=== PATIENT | female | born 1940 | race Caucasian/White ===

== ENCOUNTER 2016-09-02 14:03 | Outpatient (CLI) | payer OTHER ==
[~2016-09-02 14:03] MED LIST: ALPRAZOLAM0.5 MG PO; ATORVASTATIN CA20 MG PO; CEPHALEXIN250 MG PO; CYCLOBENZAPRINE10 MG PO; FOLIC ACID1 MG PO; FOSAMAX70 MG PO; FUROSEMIDE40 MG PO; HUMALOG KWI100 MG/ML SC; IRON325 MG PO; LACTULOSE PO; LANTUS SOL100 UNITS/ SC; LEVOTHYROXINE100 MCG PO; MAG-OXIDE400 MG PO; PRILOSEC20 MG PO; PROMACTA12.5 MG PO; SPIRONOLACTONE25 MG PO; SPIRONOLACTONE50 MG PO; VICODIN EQUIVAL1 TAB PO
--- NOTE | 2016-09-02 14:50 | DIAGNOSTIC IMAGING REPORT ---
PROCEDURE: XR LUMBAR SPINE 2 OR 3 VIEWS INDICATION: OSTEOARTHRITIS TECHNIQUE: Three views. COMPARISON: Spine films 02/01/09 FINDINGS: Disc spacing preserved with mild vertebral end plate spurring at multiple levels. No spondylolisthesis. No evidence of an acute process or fracture. IMPRESSION: 1. Negative lumbar spine. No change from 2008 with multilevel vertebral endplate spurring.
--- NOTE | 2016-09-02 15:03 | DIAGNOSTIC IMAGING REPORT ---
PROCEDURE: XR THORACIC SPINE 2 VIEWS INDICATION: OSTEOARTHRITIS TECHNIQUE: Three views. COMPARISON: Spine films 02/01/2009 FINDINGS: No evidence of an acute process or fracture. Disc spacing preserved with mild vertebral end plate spurring at multiple levels. IMPRESSION: 1. Negative thoracic spine. No change from 2009
== END 2016-09-02 23:00 ==
LOC: XR SRH 14:03
DX: M54.6 Pain in thoracic spine (principal); M54.5 Low back pain

== ENCOUNTER 2016-11-03 10:05 | Emergency (ER) | payer OTHER ==
--- NOTE | 2016-11-03 10:56 | ED CLINICAL REPORT ---
Clinical Report - Physicians/Mid Levels [facility] [address] [place] [address] 11/03/2016 10:05 Patient: ROXANA HERNANDEZ Time Seen: 1030. Arrived- By private vehicle. Historian- patient. HISTORY OF PRESENT ILLNESS Chief Complaint: SKIN RASH. This started past few days and is still present and worsening. It was gradual in onset and has been constant but is not gone now. It is described as painful. It has been located on the right wrist and hand. A cause has been identified (had IV placed at [facility] a day or two before it happened.). Similar symptoms previously: None. Recent medical care: The patient was seen recently in a clinic. ( gets ascites drained and fluids every 2 weeks.). REVIEW OF SYSTEMS No chest pain or joint pain. All systems otherwise negative, except as recorded above. PAST HISTORY See nurses notes. Tetanus immunization status is up-to-date. SOCIAL HISTORY No drug use. No recent travel. Is a local resident. ADDITIONAL NOTES The nursing notes have been reviewed. PHYSICAL EXAM Vital Signs: 11/03/2016 10:15 BP: 130/53. HR: 55. RR: 18. O2 saturation: 98%. Temp: 97.7 F. Appearance: Alert. Oriented X3. No acute distress. Eyes: Pupils equal, round and reactive to light. Conjunctivae and eyelids normal. ENT: Ears normal. Nose normal. Pharynx normal. Neck: Neck supple. CVS: Normal heart rate and rhythm. Heart sounds normal. Respiratory: No respiratory distress. Breath sounds normal. Chest nontender. Abdomen: Nontender. (distended with ascites.). Skin: Small area of cellulitis to right wrist and right hand. No abscess. (no crepitus. Neurovasc intact.). PROGRESS AND PROCEDURES Course of Care: he patient is a pleasant 76-year-old female with past medical history significant forcirrhosis and ascites presented for evaluation of hand pain. On examination there is erythema noted. No abscesspalpable on examination. Do not feelpatienthasarea requiring incision and drainage. Offered to draw labs on the patient based on her history of cirrhosis however patient declines at this time patient states that she has labs drawnevery 2 weeks. Patient reports that she has an appointment scheduled with her doctor in the next 2 days and will follow up withthem. Patient is not having no systemic symptoms. No fever nausea vomiting. Patient reports that she will follow up with her doctor if she is not better and will return to the emergency department if she has any worsening. Had long discussion patient in regards to her workup here in the emergency department including diagnosis, home care, follow-up, and return precautions. All questions have been answered. The patient and daughter expressed understanding of these instructions and was agreeable to them. Disposition: Discharged. Condition: good. CLINICAL IMPRESSION 11/03/2016 10:15 BP: 130/53. HR: 55. RR: 18. O2 saturation: 98%. Temp: 97.7 F. Blood pressure normal. Oxygen saturation normal. Cellulitis of the right wrist and right hand (acute). INSTRUCTIONS Warnings: GENERAL WARNINGS: Return or contact your physician immediately if your condition worsens or changes unexpectedly, if not improving as expected, or if other problems arise. Specifically return if pain, vomiting, bleeding, breathing difficulty or fever. numbness, tingling, or weakness. Your Current Medications: CONTINUE TAKING THE FOLLOWING MEDICATIONS: Atorvastatin Calcium Oral : 20 mg daily. Cyclobenzaprine HCl Oral : 10 mg daily. Folic Acid Oral. Fosamax Oral. Furosemide Oral : 20 mg daily. Hydrocodone-Acetaminophen Oral : 5 mg 2x a day. Iron dialy*. Levothyroxine Sodium Oral : 150 mcg daily. PriLOSEC Oral : 20 mg daily. Promacta Oral : Tablet 12.5 mg, 3x a week. Spironolactone Oral : 50 mg daily. Prescription Medications: Bactrim DS 800 mg / 160 mg: take 1 tablet orally every 12 hours for 10 days. No refill. Substitution is permissible. (disp 20 tabs) Keflex 500 mg: take 1 capsule orally every 8 hours for 10 days. No refill. Substitution is permissible. (disp 30 caps) Follow-up: Return to the emergency department as needed. Follow up with your doctor as needed. Reason for referral: recheck today's concerns. Summary of care provided to patient and family via paper. Screening today revealed the patient's blood pressure to be in the normal range. The patient should follow up with a primary care provider for blood pressure management. Understanding of the discharge instructions verbalized by patient. Discharge instructions reviewed (daughter). (Electronically signed by Dionicio Camilo Dr. 11/06/2016 20:51)
--- NOTE | 2016-11-03 10:56 | ED NURSING NOTES ---
Clinical Report - Nurses [facility] [address] [place] [address] 11/03/2016 10:05 Patient: ROXANA HERNANDEZ TRIAGE Triage time 10:15 Nov 03 2016. Acuity: LEVEL 3. Chief Complaint: INJURY TO RIGHT HAND. --10:20 Alfonso Wick R.N. 10:15 11/03/16. BP: 130/53. HR: 55. RR: 18. O2 saturation: 98%. Temp: 97.7 F. Pain level now 03/16. --10:20 Alfonso Wick R.N. K[place]ITLIN COMA SCORE: [place] Coma Scale: 15- eyes open spontaneously (4); best verbal response- oriented x 4 (5); best motor response- obeys commands (6). --10:21 Alfonso Wick R.N. Weight: 60.3 kg stated. Height/Length: 63 inches Per Patient. BMI: 23.6. --10:18 Alfonso Wick R.N. Medications Atorvastatin Calcium Oral 20 mg, daily. --10:20 Alfonso Wick R.N. Cyclobenzaprine HCl Oral 10 mg, daily. Folic Acid Oral. Fosamax Oral. Furosemide Oral 20 mg, daily. Hydrocodone-Acetaminophen Oral 5 mg, 2x a day. Iron dialy. Levothyroxine Sodium Oral 150 mcg, daily. PriLOSEC Oral 20 mg, daily. Promacta Oral (Tablet 12.5 mg), 3x a week. Spironolactone Oral 50 mg, daily. --10:20 Alfonso Wick R.N. Allergies NKDA. --10:20 Alfonso Wick R.N. History Arrived by private vehicle. Historian: patient. Accompanied by family. Primary physician (Becky). This occurred (since Monday). Occurred (hospital). ( Had an IV on that arm at [facility] when patient states she had her fluid removed from her belly.). No neck pain or weakness. Treatment LEAD SHIPPER: Ice and (heat). PAST MEDICAL HX: Tetanus status: up-to-date. Immunizations: up-to-date. The patient is post-menopausal. SOCIAL HX: Smoker- current status unknown. No alcohol use or drug use. SELF HARM ASSESSMENT: A self harm assessment was performed. The patient answered "no" to the question "Have you recently felt down, depressed, or hopeless?" and "Do you have thoughts of harming or killing yourself?". FALL RISK ASSESSMENT: Fall risk assessment completed. No fall risk identified. NUTRITIONAL RISK ASSESSMENT: The nutritional risk assessment revealed no deficiencies. FUNCTIONAL ASSESSMENT: Functional assessment: no impairments noted. LEARNING NEEDS ASSESSMENT: The learning needs assessment revealed no barriers. ABUSE ASSESSMENT: Abuse assessment: (no) The patient was asked "Do you feel safe in your home?". SKIN INTEGRITY ASSESSMENT: Skin integrity risk assessment completed. No skin integrity risk identified. --10:20 Alfonso Wick R.N. PROBLEMS: Leukopenia. Benign Positional Vertigo. Dizziness. Vomiting. Vertigo. Weakness. Ascites. Thrombocytopenia. Laceration. Skin Avulsion. Renal Failure. Hypoglycemia. Fall. Rectal Bleed. Hemorrhoids. Abdominal Pain. Cystitis. Contusion. URI. Bronchitis. Costochondritis. Chest Wall Pain. Hyperlipidemia. Congestive Heart Failure. Arrhythmia. Coronary Artery Disease. Anemia. Abnormal Test. Arthritis. Back Pain. Hypothyroidism. Myocardial Infarction. Diabetes Mellitus. Hypertension. --10:21 Alfonso Wick R.N. ADDITIONAL SURGERIES: Abdominal Hernia Repair. Cholecystectomy. Coronary Artery Bypass Graft. . Hernia Repair. Hysterectomy. Pacemaker. Tonsillectomy. --10:21 Alfonso Wick R.N. Interventions ID band on patient. --10:20 Alfonso Wick R.N. PHYSICAL ASSESSMENT Ambulatory to room. GENERAL / NEURO / PSYCH: Oriented X 4. Alert. Appears in no acute distress. Appears in pain. EXTREMITIES: Extremity pulses are within normal limits. Extremities exhibit normal ROM. Right forearm: tenderness and erythema. No laceration, abrasion or deformity. Right wrist: tenderness and erythema. Limited ROM secondary to pain. No deformity. SKIN: Skin intact. Skin is warm and dry. No bleeding. --10:24 Hernandez, Gracia, R.N. NURSING PROGRESS NOTES The initial plan of care for this patient has been created This plan of care was discussed with the patient. Warming measures: blanket applied. Reassurance given. Two patient identifiers checked. Call light placed in reach. Side rails up x 1. Bed placed in lowest position. Brakes of bed on. --10:24 Gracia Hernandez R.N. 10:47 11/03/2016 Keflex (Cephalexin) PO Tablets 500 mg given. Allergies verified and confirmed 5 rights. --10:47 Gracia Hernandez R.N. 10:47 11/03/2016 Bactrim DS (Sulfamethoxazole-TMP DS) PO 1 tab given. Allergies verified and confirmed 5 rights. --10:47 Gracia Hernandez R.N. 11:04 11/03/2016 Bactrim DS PO Response: no adverse reaction. --11:14 Gracia Hernandez R.N. 11:10 11/03/2016 Keflex PO Response: no adverse reaction. --11:15 Gracia Hernandez R.N. DISPOSITION / DISCHARGE Departure time: 1115 AM. Condition at departure: unchanged and stable. The goals identified in the patient's plan of care were met. No learning barriers present. Discharge instructions provided and reviewed with the patient and family. Reviewed warnings (s/s of symptoms and swealling getting worse). Reviewed medication(s) side effects, precautions, dosing and course information. Prescription(s) given to the patient. Activity restrictions (rest) reviewed. Patient verbalized understanding. Written instructions provided in [place]. No treatment instructions or referrals given to the patient. The patient was discharged by the physician. She was discharged home and accompanied by family. She left the Emergency Department ambulatory and via private vehicle. Family member driving. FALL RISK ASSESSMENT: Fall risk assessment completed. No fall risk identified. --11:17 Gracia Hernandez R.N. 11:00 11/03/16. BP: 119/50 (regular adult cuff) taken on the left arm, via an automated monitor, while sitting. HR: 81. RR: 18. O2 saturation: 100% on room air. Temp: 98.2 F (oral). Pain level now: 12/14. --11:17 Gracia Hernandez R.N. Locked/Released at 11/03/2016 11:17 by Gracia Hernandez R.N.
--- NOTE | 2016-11-03 10:57 | ED ORDER SUMMARY ---
..... Patient: ROXANA HERNANDEZ OrderSheet [facility] VisitID: [id number] [address] [place] [address] 76y, F Registration Date/Time: 11/03/2016 ORDER SHEET Weight: 60.3 kg (stated) Allergies: NKDA GENERAL ORDERS: MEDICATION ORDERS: Keflex PO 500 mg (NOW) (10:40 11/03/2016 Hunter Flores) (10:47 EHgriselda R.N.) Bactrim DS PO (Tablet 800-160 mg) 1 tab (NOW) (10:40 11/03/2016 Hunter Flores) (10:47 Jamila R.N.) IV FLUIDS: ORDER SHEET NOTES: [Electronically signed by Gracia Hernandez R.N. (11:17 11/03/2016)] [Electronically signed by Dionicio Camilo Dr. (20:51 11/06/2016)] [Electronically locked/signed by Gracia Hernandez R.N. (11:17 11/03/2016)]
--- NOTE | 2016-11-03 10:57 | ED ORDER SUMMARY ---
..... Patient: ROXANA HERNANDEZ OrderSheet [facility] VisitID: [id number] [address] [place] [address] 76y, F Registration Date/Time: 11/03/2016 ORDER SHEET Weight: 60.3 kg (stated) Allergies: NKDA GENERAL ORDERS: MEDICATION ORDERS: Keflex PO 500 mg (NOW) (10:40 11/03/2016 Hunter Flores) (10:47 EHgriselda R.N.) Bactrim DS PO (Tablet 800-160 mg) 1 tab (NOW) (10:40 11/03/2016 Hunter Flores) (10:47 Jamila R.N.) IV FLUIDS: ORDER SHEET NOTES: [Electronically signed by Gracia Hernandez R.N. (11:17 11/03/2016)] [Electronically signed by Dionicio Camilo Dr. (20:51 11/06/2016)] [Electronically locked/signed by Gracia Hernandez R.N. (11:17 11/03/2016)]
--- NOTE | 2016-11-06 20:51 | ED MED RECONCILIATION SUMMARY ---
Patient: ROXANA HERNANDEZ Medication Reconciliation Report [facility] VisitID: [id number] [place] [address] 76y, F Registration Date/Time: 11/03/2016 Weight: 60.3 kg Height/Length: 63 in. BMI: 23.6 ALLERGIES: NKDA The patient's Home Medications are listed below: CONTINUE TAKING THE FOLLOWING MEDICATIONS: Atorvastatin Calcium Oral 20 mg, daily Cyclobenzaprine HCl Oral 10 mg, daily Folic Acid Oral Fosamax Oral Furosemide Oral 20 mg, daily Hydrocodone-Acetaminophen Oral 5 mg, 2x a day Iron dialy Levothyroxine Sodium Oral 150 mcg, daily PriLOSEC Oral 20 mg, daily Promacta Oral (12.5 mg), 3x a week Spironolactone Oral 50 mg, daily The source(s) of the original Home Medication information: Not obtained. The following Medications were given to the patient in the Emergency Department: Keflex [PO] PO 500 mg, administered: 11/03/2016 10:47:00 AM Bactrim DS [PO] PO 1 tab, administered: 11/03/2016 10:47:00 AM The following Medications were prescribed to the patient: Bactrim DS 800 mg / 160 mg: take 1 tablet orally every 12 hours for 10 days. No refill. Substitution is permissible.(disp 20 tabs) -- Dionicio Camilo Dr. Keflex 500 mg: take 1 capsule orally every 8 hours for 10 days. No refill. Substitution is permissible.(disp 30 caps) -- Dionicio Camilo Dr.
--- NOTE | 2016-11-06 20:51 | ED MAR SUMMARY ---
..... Medication Administration Record [facility] [address] [place] [address] Patient: ROXANA HERNANDEZ Visit ID: [id number] 76y, F Weight: 60.3 kg Height/Length: 63 in BMI: 23.6 ALLERGIES: NKDA Given 10:47 11/03/2016 Gracia Hernandez, RLuisNLuis Medication Administered: KEFLEX [PO] (CEPHALEXIN), Dose: 500 mg Tablets PO. Medication Ordered: Keflex PO 500 mg (NOW). Given 10:47 11/03/2016 Gracia Hernandez, R.N. Medication Administered: BACTRIM DS [PO] (SULFAMETHOXAZOLE-TMP DS), Dose: 1 tab PO. Medication Ordered: Bactrim DS PO (Tablet 800-160 mg) 1 tab (NOW).
--- NOTE | 2016-11-06 20:51 | ED DISCHARGE INSTRUCTIONS ---
Patient: ROXANA HERNANDEZ General Instructions [facility] VisitID: [id number] [place] [address] 76y, F Registration Date/Time: 11/03/2016 11/03/2016 10:15 BP: 130/53. HR: 55. RR: 18. O2 saturation: 98%. Temp: 97.7 F. Blood pressure normal. Oxygen saturation normal. Cellulitis of the right wrist and right hand (acute). INSTRUCTIONS Warnings: GENERAL WARNINGS: Return or contact your physician immediately if your condition worsens or changes unexpectedly, if not improving as expected, or if other problems arise. Specifically return if pain, vomiting, bleeding, breathing difficulty or fever. numbness, tingling, or weakness. Your Current Medications: CONTINUE TAKING THE FOLLOWING MEDICATIONS: Atorvastatin Calcium Oral : 20 mg daily. Cyclobenzaprine HCl Oral : 10 mg daily. Folic Acid Oral. Fosamax Oral. Furosemide Oral : 20 mg daily. Hydrocodone-Acetaminophen Oral : 5 mg 2x a day. Iron dialy*. Levothyroxine Sodium Oral : 150 mcg daily. PriLOSEC Oral : 20 mg daily. Promacta Oral : Tablet 12.5 mg, 3x a week. Spironolactone Oral : 50 mg daily. Prescription Medications: Bactrim DS 800 mg / 160 mg: take 1 tablet orally every 12 hours for 10 days. No refill. Substitution is permissible. (disp 20 tabs) Keflex 500 mg: take 1 capsule orally every 8 hours for 10 days. No refill. Substitution is permissible. (disp 30 caps) Follow-up: Return to the emergency department as needed. Follow up with your doctor as needed. Reason for referral: recheck today's concerns. Summary of care provided to patient and family via paper. Screening today revealed the patient's blood pressure to be in the normal range. The patient should follow up with a primary care provider for blood pressure management. Understanding of the discharge instructions verbalized by patient. Discharge instructions reviewed (daughter). ADDITIONAL INFORMATION Cellulitis You have an infection of the skin known as cellulitis. This usually starts with a scrape, cut, insect bite, blister or other opening in the skin which becomes infected. This is a serious condition. It must be watched closely to be sure the infection is not spreading. With antibiotic treatment, the size of the red area will gradually shrink in size until the skin returns to normal. This will take 7-10 days. The red area should never increase in size once the antibiotic medicine has been started. Occasionally, an infection will be resistant to one antibiotic and another one will have to be used. Home Care: 1) Limit the use of the affected part, since excess movement can cause the infection to spread. 2) If the infection is on your leg, walk as little as possible during the first few days of the treatment. Keep your leg elevated while sitting. This will reduce swelling. 3) Take all of the antibiotic medicine exactly as directed until it is gone. Be careful not to miss any doses, especially during the first seven days. Follow Up with your doctor or this facility as directed. Check the infected area daily for the warning signs listed below. Get Prompt Medical Attention if any of the following occur: -- Spreading area of redness -- Increasing swelling or pain -- Appearance of pus or drainage -- Fever over 100.4 F (38.0 C) oral, or over 101.4 F (38.6 C) rectal, after two days on antibiotics Sulfamethoxazole, Trimethoprim Oral tablet What is this medicine? SULFAMETHOXAZOLE; TRIMETHOPRIM or SMX-TMP (suhl fuh meth OK alberto zohl; trye METH oh prim) is a combination of a sulfonamide antibiotic and a second antibiotic, trimethoprim. It is used to treat or prevent certain kinds of bacterial infections. It will not work for colds, flu, or other viral infections. How should I use this medicine? Take this medicine by mouth with a full glass of water. Follow the directions on the prescription label. Take your medicine at regular intervals. Do not take it more often than directed. Do not skip doses or stop your medicine early. Talk to your geographic information system analyst regarding the use of this medicine in children. Special care may be needed. This medicine has been used in children as young as 2 months of age. What side effects may I notice from receiving this medicine? Side effects that you should report to your doctor or health school childcare attendant as soon as possible: allergic reactions like skin rash or hives, swelling of the face, lips, or tongue breathing problems fever or chills, sore throat irregular heartbeat, chest pain joint or muscle pain pain or difficulty passing urine red pinpoint spots on skin redness, blistering, peeling or loosening of the skin, including inside the mouth unusual bleeding or bruising unusually weak or tired yellowing of the eyes or skin Side effects that usually do not require medical attention (report to your doctor or health school childcare attendant if they continue or are bothersome): diarrhea dizziness headache loss of appetite nausea, vomiting nervousness What may interact with this medicine? Do not take this medicine with any of the following medications: aminobenzoate potassium dofetilide metronidazole This medicine may also interact with the following medications: BARRON inhibitors like benazepril, enalapril, lisinopril, and ramipril cyclosporine digoxin diuretics indomethacin medicines for diabetes methenamine methotrexate phenytoin potassium supplements pyrimethamine sulfinpyrazone tricyclic antidepressants warfarin What if I miss a dose? If you miss a dose, take it as soon as you can. If it is almost time for your next dose, take only that dose. Do not take double or extra doses. Where should I keep my medicine? Keep out of the reach of children. Store at room temperature between 20 to 25 degrees C (68 to 77 degrees F). Protect from light. Throw away any unused medicine after the expiration date. What should I tell my health care provider before I take this medicine? They need to know if you have any of these conditions: anemia asthma being treated with anticonvulsants if you frequently drink alcohol containing drinks kidney disease liver disease low level of folic acid or [id number] dehydrogenase poor nutrition or malabsorption porphyria severe allergies thyroid disorder an unusual or allergic reaction to sulfamethoxazole, trimethoprim, sulfa drugs, other medicines, foods, dyes, or preservatives or trying to get breast-feeding What should I watch for while using this medicine? Tell your doctor or health school childcare attendant if your symptoms do not improve. Drink several glasses of water a day to reduce the risk of kidney problems. Do not treat diarrhea with over the counter products. Contact your doctor if you have diarrhea that lasts more than 2 days or if it is severe and watery. This medicine can make you more sensitive to the sun. Keep out of the sun. If you cannot avoid being in the sun, wear protective clothing and use a sunscreen. Do not use sun lamps or tanning beds/booths. Cephalexin Monohydrate Oral tablet What is this medicine? CEPHALEXIN (sef a DORY in) is a cephalosporin antibiotic. It is used to treat certain kinds of bacterial infections It will not work for colds, flu, or other viral infections. How should I use this medicine? Take this medicine by mouth with a full glass of water. Follow the directions on the prescription label. This medicine can be taken with or without food. Take your medicine at regular intervals. Do not take your medicine more often than directed. Take all of your medicine as directed even if you think you are better. Do not skip doses or stop your medicine early. Talk to your geographic information system analyst regarding the use of this medicine in children. While this drug may be prescribed for selected conditions, precautions do apply. What side effects may I notice from receiving this medicine? Side effects that you should report to your doctor or health school childcare attendant as soon as possible: allergic reactions like skin rash, itching or hives, swelling of the face, lips, or tongue breathing problems pain or trouble passing urine redness, blistering, peeling or loosening of the skin, including inside the mouth severe or watery diarrhea unusually weak or tired yellowing of the eyes, skin Side effects that usually do not require medical attention (report to your doctor or health school childcare attendant if they continue or are bothersome): gas or heartburn genital or anal irritation headache joint or muscle pain nausea, vomiting What may interact with this medicine? probenecid some other antibiotics What if I miss a dose? If you miss a dose, take it as soon as you can. If it is almost time for your next dose, take only that dose. Do not take double or extra doses. There should be at least 4 to 6 hours between doses. Where should I keep my medicine? Keep out of the reach of children. Store at room temperature between 59 and 86 degrees F (15 and 30 degrees C). Throw away any unused medicine after the expiration date. What should I tell my health care provider before I take this medicine? They need to know if you have any of these conditions: kidney disease stomach or intestine problems, especially colitis an unusual or allergic reaction to cephalexin, other cephalosporins, penicillins, other antibiotics, medicines, foods, dyes or preservatives or trying to get breast-feeding What should I watch for while using this medicine? Tell your doctor or health school childcare attendant if your symptoms do not begin to improve in a few days. Do not treat diarrhea with over the counter products. Contact your doctor if you have diarrhea that lasts more than 2 days or if it is severe and watery. If you have diabetes, you may get a false-positive result for sugar in your urine. Check with your doctor or health school childcare attendant. You have been given the following additional information: Cellulitis Sulfamethoxazole, Trimethoprim Oral tablet Cephalexin Monohydrate Oral tablet (Electronically signed by Dionicio Camilo Dr. 11/06/2016 20:51)
--- NOTE | 2016-11-06 20:51 | ED DISCHARGE INSTRUCTIONS ---
Patient: ROXANA HERNANDEZ General Instructions [facility] VisitID: [id number] [place] [address] 76y, F Registration Date/Time: 11/03/2016 11/03/2016 10:15 BP: 130/53. HR: 55. RR: 18. O2 saturation: 98%. Temp: 97.7 F. Blood pressure normal. Oxygen saturation normal. Cellulitis of the right wrist and right hand (acute). INSTRUCTIONS Warnings: GENERAL WARNINGS: Return or contact your physician immediately if your condition worsens or changes unexpectedly, if not improving as expected, or if other problems arise. Specifically return if pain, vomiting, bleeding, breathing difficulty or fever. numbness, tingling, or weakness. Your Current Medications: CONTINUE TAKING THE FOLLOWING MEDICATIONS: Atorvastatin Calcium Oral : 20 mg daily. Cyclobenzaprine HCl Oral : 10 mg daily. Folic Acid Oral. Fosamax Oral. Furosemide Oral : 20 mg daily. Hydrocodone-Acetaminophen Oral : 5 mg 2x a day. Iron dialy*. Levothyroxine Sodium Oral : 150 mcg daily. PriLOSEC Oral : 20 mg daily. Promacta Oral : Tablet 12.5 mg, 3x a week. Spironolactone Oral : 50 mg daily. Prescription Medications: Bactrim DS 800 mg / 160 mg: take 1 tablet orally every 12 hours for 10 days. No refill. Substitution is permissible. (disp 20 tabs) Keflex 500 mg: take 1 capsule orally every 8 hours for 10 days. No refill. Substitution is permissible. (disp 30 caps) Follow-up: Return to the emergency department as needed. Follow up with your doctor as needed. Reason for referral: recheck today's concerns. Summary of care provided to patient and family via paper. Screening today revealed the patient's blood pressure to be in the normal range. The patient should follow up with a primary care provider for blood pressure management. Understanding of the discharge instructions verbalized by patient. Discharge instructions reviewed (daughter). ADDITIONAL INFORMATION Cellulitis You have an infection of the skin known as cellulitis. This usually starts with a scrape, cut, insect bite, blister or other opening in the skin which becomes infected. This is a serious condition. It must be watched closely to be sure the infection is not spreading. With antibiotic treatment, the size of the red area will gradually shrink in size until the skin returns to normal. This will take 7-10 days. The red area should never increase in size once the antibiotic medicine has been started. Occasionally, an infection will be resistant to one antibiotic and another one will have to be used. Home Care: 1) Limit the use of the affected part, since excess movement can cause the infection to spread. 2) If the infection is on your leg, walk as little as possible during the first few days of the treatment. Keep your leg elevated while sitting. This will reduce swelling. 3) Take all of the antibiotic medicine exactly as directed until it is gone. Be careful not to miss any doses, especially during the first seven days. Follow Up with your doctor or this facility as directed. Check the infected area daily for the warning signs listed below. Get Prompt Medical Attention if any of the following occur: -- Spreading area of redness -- Increasing swelling or pain -- Appearance of pus or drainage -- Fever over 100.4 F (38.0 C) oral, or over 101.4 F (38.6 C) rectal, after two days on antibiotics Sulfamethoxazole, Trimethoprim Oral tablet What is this medicine? SULFAMETHOXAZOLE; TRIMETHOPRIM or SMX-TMP (suhl fuh meth OK alberto zohl; trye METH oh prim) is a combination of a sulfonamide antibiotic and a second antibiotic, trimethoprim. It is used to treat or prevent certain kinds of bacterial infections. It will not work for colds, flu, or other viral infections. How should I use this medicine? Take this medicine by mouth with a full glass of water. Follow the directions on the prescription label. Take your medicine at regular intervals. Do not take it more often than directed. Do not skip doses or stop your medicine early. Talk to your plumbing foreman regarding the use of this medicine in children. Special care may be needed. This medicine has been used in children as young as 2 months of age. What side effects may I notice from receiving this medicine? Side effects that you should report to your doctor or health healthcare customer service as soon as possible: allergic reactions like skin rash or hives, swelling of the face, lips, or tongue breathing problems fever or chills, sore throat irregular heartbeat, chest pain joint or muscle pain pain or difficulty passing urine red pinpoint spots on skin redness, blistering, peeling or loosening of the skin, including inside the mouth unusual bleeding or bruising unusually weak or tired yellowing of the eyes or skin Side effects that usually do not require medical attention (report to your doctor or health healthcare customer service if they continue or are bothersome): diarrhea dizziness headache loss of appetite nausea, vomiting nervousness What may interact with this medicine? Do not take this medicine with any of the following medications: aminobenzoate potassium dofetilide metronidazole This medicine may also interact with the following medications: BARRON inhibitors like benazepril, enalapril, lisinopril, and ramipril cyclosporine digoxin diuretics indomethacin medicines for diabetes methenamine methotrexate phenytoin potassium supplements pyrimethamine sulfinpyrazone tricyclic antidepressants warfarin What if I miss a dose? If you miss a dose, take it as soon as you can. If it is almost time for your next dose, take only that dose. Do not take double or extra doses. Where should I keep my medicine? Keep out of the reach of children. Store at room temperature between 20 to 25 degrees C (68 to 77 degrees F). Protect from light. Throw away any unused medicine after the expiration date. What should I tell my health care provider before I take this medicine? They need to know if you have any of these conditions: anemia asthma being treated with anticonvulsants if you frequently drink alcohol containing drinks kidney disease liver disease low level of folic acid or [id number] dehydrogenase poor nutrition or malabsorption porphyria severe allergies thyroid disorder an unusual or allergic reaction to sulfamethoxazole, trimethoprim, sulfa drugs, other medicines, foods, dyes, or preservatives or trying to get breast-feeding What should I watch for while using this medicine? Tell your doctor or health healthcare customer service if your symptoms do not improve. Drink several glasses of water a day to reduce the risk of kidney problems. Do not treat diarrhea with over the counter products. Contact your doctor if you have diarrhea that lasts more than 2 days or if it is severe and watery. This medicine can make you more sensitive to the sun. Keep out of the sun. If you cannot avoid being in the sun, wear protective clothing and use a sunscreen. Do not use sun lamps or tanning beds/booths. Cephalexin Monohydrate Oral tablet What is this medicine? CEPHALEXIN (sef a DORY in) is a cephalosporin antibiotic. It is used to treat certain kinds of bacterial infections It will not work for colds, flu, or other viral infections. How should I use this medicine? Take this medicine by mouth with a full glass of water. Follow the directions on the prescription label. This medicine can be taken with or without food. Take your medicine at regular intervals. Do not take your medicine more often than directed. Take all of your medicine as directed even if you think you are better. Do not skip doses or stop your medicine early. Talk to your plumbing foreman regarding the use of this medicine in children. While this drug may be prescribed for selected conditions, precautions do apply. What side effects may I notice from receiving this medicine? Side effects that you should report to your doctor or health healthcare customer service as soon as possible: allergic reactions like skin rash, itching or hives, swelling of the face, lips, or tongue breathing problems pain or trouble passing urine redness, blistering, peeling or loosening of the skin, including inside the mouth severe or watery diarrhea unusually weak or tired yellowing of the eyes, skin Side effects that usually do not require medical attention (report to your doctor or health healthcare customer service if they continue or are bothersome): gas or heartburn genital or anal irritation headache joint or muscle pain nausea, vomiting What may interact with this medicine? probenecid some other antibiotics What if I miss a dose? If you miss a dose, take it as soon as you can. If it is almost time for your next dose, take only that dose. Do not take double or extra doses. There should be at least 4 to 6 hours between doses. Where should I keep my medicine? Keep out of the reach of children. Store at room temperature between 59 and 86 degrees F (15 and 30 degrees C). Throw away any unused medicine after the expiration date. What should I tell my health care provider before I take this medicine? They need to know if you have any of these conditions: kidney disease stomach or intestine problems, especially colitis an unusual or allergic reaction to cephalexin, other cephalosporins, penicillins, other antibiotics, medicines, foods, dyes or preservatives or trying to get breast-feeding What should I watch for while using this medicine? Tell your doctor or health healthcare customer service if your symptoms do not begin to improve in a few days. Do not treat diarrhea with over the counter products. Contact your doctor if you have diarrhea that lasts more than 2 days or if it is severe and watery. If you have diabetes, you may get a false-positive result for sugar in your urine. Check with your doctor or health healthcare customer service. You have been given the following additional information: Cellulitis Sulfamethoxazole, Trimethoprim Oral tablet Cephalexin Monohydrate Oral tablet (Electronically signed by Dionicio Camilo Dr. 11/06/2016 20:51)
--- NOTE | 2016-11-06 20:51 | ED MED RECONCILIATION SUMMARY ---
Patient: ROXANA HERNANDEZ Medication Reconciliation Report [facility] VisitID: [id number] [place] [address] 76y, F Registration Date/Time: 11/03/2016 Weight: 60.3 kg Height/Length: 63 in. BMI: 23.6 ALLERGIES: NKDA The patient's Home Medications are listed below: CONTINUE TAKING THE FOLLOWING MEDICATIONS: Atorvastatin Calcium Oral 20 mg, daily Cyclobenzaprine HCl Oral 10 mg, daily Folic Acid Oral Fosamax Oral Furosemide Oral 20 mg, daily Hydrocodone-Acetaminophen Oral 5 mg, 2x a day Iron dialy Levothyroxine Sodium Oral 150 mcg, daily PriLOSEC Oral 20 mg, daily Promacta Oral (12.5 mg), 3x a week Spironolactone Oral 50 mg, daily The source(s) of the original Home Medication information: Not obtained. The following Medications were given to the patient in the Emergency Department: Keflex [PO] PO 500 mg, administered: 11/03/2016 10:47:00 AM Bactrim DS [PO] PO 1 tab, administered: 11/03/2016 10:47:00 AM The following Medications were prescribed to the patient: Bactrim DS 800 mg / 160 mg: take 1 tablet orally every 12 hours for 10 days. No refill. Substitution is permissible.(disp 20 tabs) -- Dionicio Camilo Dr. Keflex 500 mg: take 1 capsule orally every 8 hours for 10 days. No refill. Substitution is permissible.(disp 30 caps) -- Dionicio Camilo Dr.
--- NOTE | 2016-11-06 20:51 | ED MAR SUMMARY ---
..... Medication Administration Record [facility] [address] [place] [address] Patient: ROXANA HERNANDEZ Visit ID: [id number] 76y, F Weight: 60.3 kg Height/Length: 63 in BMI: 23.6 ALLERGIES: NKDA Given 10:47 11/03/2016 Gracia Hernandez, RLuisNLuis Medication Administered: KEFLEX [PO] (CEPHALEXIN), Dose: 500 mg Tablets PO. Medication Ordered: Keflex PO 500 mg (NOW). Given 10:47 11/03/2016 Gracia Hernandez, R.N. Medication Administered: BACTRIM DS [PO] (SULFAMETHOXAZOLE-TMP DS), Dose: 1 tab PO. Medication Ordered: Bactrim DS PO (Tablet 800-160 mg) 1 tab (NOW).
== END 2016-11-03 11:15 | disposition home or self-care (01) ==
LOC: ED SRH 10:05
DX: L03.113 Cellulitis of right upper limb (principal); Z79.891 Long term (current) use of opiate analgesic; Z79.899 Other long term (current) drug therapy

== ENCOUNTER 2016-11-07 20:13 | Emergency (ER) | payer OTHER ==
--- NOTE | 2016-11-07 22:35 | DIAGNOSTIC IMAGING REPORT ---
PROCEDURE: XR HAND 3 OR 4 VIEWS - RIGHT INDICATION: PAIN TECHNIQUE: Four views of the right hand. COMPARISON: None. FINDINGS: Diffusely mildly decreased mineralization. No acute fractures. Mild degenerative joint space loss and small spurs at the distal interphalangeal joints. Normal bony alignment. Cartilaginous calcification at the radial ulnar and radiocarpal articulations, as well as along the radial aspect of the second metacarpal phalangeal joint. Mild soft tissue swelling adjacent to the second through fourth distal interphalangeal joints. No radiodense foreign bodies. IMPRESSION: 1. No acute fractures or subluxation. 2. Changes of mild osteoarthritis. 3. Chondrocalcinosis of the proximal wrist and periarticular calcification at the second MCP joint.
--- NOTE | 2016-11-07 22:39 | ED ORDER SUMMARY ---
..... Patient: ROXANA HERNANDEZ OrderSheet [facility] VisitID: [id number] [address] [place] [address] 76y, F Registration Date/Time: 11/07/2016 ORDER SHEET Weight: 60.3 kg (stated) Allergies: NKDA GENERAL ORDERS: CBC w Diff Urgent (20:27 11/07/2016 EKoroleva P.A.-C) (Ack 20:34 CHategekimana) (22:24 DDean R.N.) BMP Urgent (20:27 11/07/2016 EKoroleva P.A.-C) (Ack 20:34 CHategekimana) (22:24 DDean R.N.) Hand 3 or 4V Right Urgent (20:28 11/07/2016 EKoroleva P.A.-C) (Ack 20:34 CHategekimana) (20:44 MCampbell) Sed Rate Urgent (20:28 11/07/2016 EKoroleva P.A.-C) (Ack 20:34 CHategekimana) (22:24 DDean R.N.) CRP Urgent (20:28 11/07/2016 EKoroleva P.A.-C) (Ack 20:34 CHategekimana) (22:24 DDean R.N.) PCT (Procalcitonin) Urgent (20:30 11/07/2016 EKoroleva P.A.-C) (Ack 20:35 CHategekimana) (22:24 DDean R.N.) Lactate, Serum Urgent (20:30 11/07/2016 EKoroleva P.A.-C) (Ack 20:35 CHategekimana) (22:24 DDean R.N.) POC Glucose (20:30 11/07/2016 EKoroleva P.A.-C) (Cancelled: Other22:59 DDean R.N.) Splint (UE) (Right) (volar / right hand, please talk to me Markus Karimi) (22:25 11/07/2016 EKoroleva P.A.-C) (22:34 DDean R.N.) MEDICATION ORDERS: IV FLUIDS: IV Saline Lock (20:27 11/07/2016 Beba Bartholomew) ([facility] 20:30 DDean R.N.) (22:24 DDean R.N.) ORDER SHEET NOTES: [Electronically signed by Marycarmen Perales P.A.-C (22:58 11/07/2016)] [Electronically signed by Kaia Bernal R.N. (23:02 11/07/2016)] [Electronically locked/signed by Kaia Bernal R.N. (23:02 11/07/2016)]
--- NOTE | 2016-11-07 22:39 | ED CLINICAL REPORT ---
Clinical Report - Physicians/Mid Levels [facility] [address] [place] [address] 11/07/2016 20:12 Patient: [facility]DEZ [facility] [id number] Time Seen: 20:37 Nov 07 2016. Arrived- By private vehicle. Historian- patient. HISTORY OF PRESENT ILLNESS Chief Complaint: Injury. (R. Hand pain/ swelling/ rash). The injury happened 7 days. This was not an incised wound, caused by a direct blow or a crush injury. Patient is experiencing mild pain. Patient denies injury to the head or neck. ( [id number] patient, who previously had an IV at the site, developed swelling, was seen in the emergency department on the , was started on Bactrim and Keflex, she reports she has been taking her antibiotics, some aspects are improved somewhat are worse. She is diabetic, now insulin-dependent. Denies any direct injury. He denies any paresthesias. Some pain with movement. NO sob. Denies h/o gout. Denies new fevers. Denies new pain. Reports o nly limited improvement.). REVIEW OF SYSTEMS The patient has had swelling. No skin laceration. All systems otherwise negative, except as recorded above. PAST HISTORY The patient's dominant hand is the right. She has not had a prior injury to the same area. Tetanus immunization status is up-to-date. Problems: Cellulitis. Leukopenia. Benign Positional Vertigo. Dizziness. Vomiting. Vertigo. Weakness. Ascites. Thrombocytopenia. Laceration. Skin Avulsion. Renal Failure. Hypoglycemia. Fall. Rectal Bleed. Hemorrhoids. Abdominal Pain. Cystitis. Contusion. URI. Bronchitis. Costochondritis. Chest Wall Pain. Hyperlipidemia. Congestive Heart Failure. Arrhythmia. Coronary Artery Disease. Anemia. Abnormal Test. Arthritis. Back Pain. Hypothyroidism. Myocardial Infarction. Diabetes Mellitus. Hypertension. Additional Surgeries: Abdominal Hernia Repair. Cholecystectomy. Coronary Artery Bypass Graft. . Hernia Repair. Hysterectomy. Pacemaker. Tonsillectomy. Medications: Keflex 500mg every 8 hours, started on 11/03. Bactrim BID started 11/03. Atorvastatin Calcium Oral 20 mg, daily. Cyclobenzaprine HCl Oral 10 mg, daily. Folic Acid Oral. Fosamax Oral. Furosemide Oral 20 mg, daily. Hydrocodone-Acetaminophen Oral 5 mg, 2x a day. Iron dialy. Levothyroxine Sodium Oral 150 mcg, daily. PriLOSEC Oral 20 mg, daily. Promacta Oral (Tablet 12.5 mg), 3x a week. Spironolactone Oral 50 mg, daily. Allergies: NKDA. SOCIAL HISTORY No alcohol use. ADDITIONAL NOTES The nursing notes have been reviewed. PHYSICAL EXAM Vital Signs: 11/07/2016 20:20 BP: 138/59. HR: 80. RR: 20. O2 saturation: 100%. Temp: 98.5 F. Pain level now: 8/10. Appearance: Alert. No acute distress. Head: Head atraumatic. CVS: Normal heart rate and rhythm. Heart sounds normal. Respiratory: No respiratory distress. Breath sounds normal. Skin: Skin warm. (erythema of dorsal aspect of central/ proximal hand, swelling into wrist/ distal forearm, and mild lymphagetic streaking, no palpable abscess/ mass.). Extremities: Signs of infection present. Right distal radius. No tenderness or swelling. Right distal ulna: No tenderness or laceration. Dorsal right hand: mild erythema, tenderness and swelling of the proximal and central aspect of the dorsal hand. No ecchymosis or foreign body. Soft tissue tenderness present. No bony tenderness. Neuro, Vascular and Tendons: Vascular status intact. Sensation intact. Tendon function intact. LABS, X-RAYS, AND EKG Rt Hand X-ray: (IMPRESSION: 1. No acute fractures or subluxation. 2. Changes of mild osteoarthritis. 3. Chondrocalcinosis of the proximal wrist and periarticular calcification at the second MCP joint. Electronically Final signed by:Lissette Jennings MD 11/07/2016 10:35:12 PM). Laboratory Tests: ESR: (EUN: 11/07/2016 21:30) ( MsgRcvd 11/07/2016 22:13) Final results Test Result Flag Units (Reference) SED RATE WESTERGREN 7 mm/hr (0-30) CBC w Diff: (EUN: 11/07/2016 21:30) ( MsgRcvd 11/07/2016 22:38) Final results Test Result Flag Units (Reference) WHITE BLOOD COUNT 2.8 L K/uL (4.5-11.5) RED BLOOD COUNT 2.69 L M/uL (4.00-5.20) HEMOGLOBIN 7.9 L gm/dL (12.0-16.0) HEMATOCRIT 23.9 L % (36.0-46.0) MEAN CELL VOLUME 89 fL (80-100) MEAN CORPUSCULAR HGB 29 pg (26-34) MEAN CORPUSCULAR HGB CONC 33 g/dL (31-37) RED CELL DISTRIBUTION WIDTH 17.1 H % (11.6-14.8) PLATELET COUNT 31 L K/uL (150-400) Platelets decreased per smear review. NEUTROPHIL % 82.3 H % (50-75) LYMPH % 5.9 L % (25-40) MONO % 8.0 % (3-14) EOSINOPHIL % 3.1 % (0-4) BASOPHIL % 0.7 % (0-2) Lactate, Serum: (EUN: 11/07/2016 22:00) ( [facility] 11/07/2016 22:27) Final results Test Result Flag Units (Reference) LACTIC ACID 0.7 mmol/L (0.4-2.0) [id number]: (EUN: 11/07/2016 21:30) ( [facility] 11/07/2016 22:12) Final results Test Result Flag Units (Reference) PROCALCITONIN <0.5 ng/mL (0-0.5) PCT Concentration: Interpretation : Risk/option for action PCT <=0.5 ng/mL : Systemic : Low risk forinfection(sepsis): progression to severeis not likely. : systemic infection.Local bacterial : CAUTION-PCT levelsinfection is : below 0.5 ng/mL do notpossible. : exclude an infection,because localizedinfections (withoutsystemic signs) may beassociated with suchlow levels. If PCT ismeasured very earlyafter a bacterialchallenge (usually <6hours), these valuesmay still be low. Inthis case PCT shouldbe re-assessed 6-24hours later. PCT >0.5 and : Systemic infection: Moderate risk for<= 2 ng/mL : (sepsis) is : progression to severepossible, but : systemic infection.other conditions : The patient should beare known to : closely monitoredelevate PCT. : both clinically andby re-assessing PCTwithin 6-24 hours. PCT > 2 ng/mL : Systemic infection: High risk for(sepsis) is likely: progression to severeunless other : systemic infection.causes are known. : PCT >= 10 ng/mL : Important systemic: High likelihood ofinflammatory : severe sepsis orresponse, almost : septic shock.exclusively due to:severe bacterial :sepsis or septic :shock. : [id number]: (EUN: 11/07/2016 21:30) ( MsgRcvd 11/07/2016 21:55) Final results Test Result Flag Units (Reference) C-REACTIVE PROTEIN 1.7 H mg/dL (0.0-0.9) BMP: (EUN: 11/07/2016 21:30) ( MsgRcvd 11/07/2016 21:54) Final results Test Result Flag Units (Reference) GLUCOSE 161 H mg/dL (70-110) BUN 61 H mg/dL (7-18) CREATININE 3.6 H mg/dL (0.6-1.3) Estimated GFR 13.00 mL/min Estimated GFR- 15.75 mL/min Note: Persistent reduction over 3 months in eGFR<60 mL/min/1.73 m2 defines CKD. Patients with eGFR values>=60 mL/min/1.73 m2 may also have CKD if evidence ofpersistent proteinuria. Additional information may be foundat www.kidney.org. SODIUM 137 mmol/L (136-145) POTASSIUM 4.8 mmol/L (3.5-5.1) CHLORIDE 106 mmol/L (98-107) CARBON DIOXIDE 21 mmol/L (21-32) CALCIUM 8.3 L mg/dL (8.5-10.1) . PROGRESS AND PROCEDURES PROCEDURES (volar r. hand splint for comfort, ns intact post application.). Course of Care: patient with unclear if she has had significant improvement, she has been elevating her hand and taking Bactrim and Keflex. Her labs are appearing to be of her chronic status, with acute on chronic renal function, chronic anemia disease. Chronic leukocytopenia, chronic thrombocytopenia, this appears to be unchanged from her previous lab values. Given complexity of the patient with comorbidities, this was discussed with Dr. Hutchins, who also evaluated the patient. Patientin a comfort volar splint, to elevate her hand, use heat, to continue Bactrim and Keflex regimen, and to follow up with her primary care provider in 2 days. No signs of tenosynovitis. No signs of abscess. 11/07/2016 20:20 BP: 138/59. HR: 80. RR: 20. O2 saturation: 100%. Temp: 98.5 F. Pain level now: 8/10. Patient is stable. Symptoms better. Patient/family counseled. Disposition: Discharged. Condition: good. CLINICAL IMPRESSION Acute superficial thrombophlebitis of the right arm. Right Hand Cellulites Acute on Chronic Renal Failure Anemia. INSTRUCTIONS Elevate affected areas above chest level. Limit use of your hand (Elevate). (elevate Continue use of YOUR antibiotics Warm Packs). Your Current Medications: CONTINUE TAKING THE FOLLOWING MEDICATIONS: Atorvastatin Calcium Oral : 20 mg daily. Bactrim BID started 11/03*. Cyclobenzaprine HCl Oral : 10 mg daily. Folic Acid Oral. Furosemide Oral : 20 mg daily. Hydrocodone-Acetaminophen Oral : 5 mg 2x a day. Iron dialy*. Keflex 500mg every 8 hours, started on 11/03*. Levothyroxine Sodium Oral : 150 mcg daily. PriLOSEC Oral : 20 mg daily. Promacta Oral : Tablet 12.5 mg, 3x a week. Spironolactone Oral : 50 mg daily. Follow-up: Follow up with your doctor in two days. (Electronically signed by Marycarmen Perales P.A.-C 11/07/2016 22:58)
--- NOTE | 2016-11-07 22:39 | ED NURSING NOTES ---
Clinical Report - Nurses [facility] [address] [place] [address] 11/07/2016 20:12 Patient: ROXANA HERNANDEZ TRIAGE Triage time 2016. Acuity: LEVEL 4. Chief Complaint: pt was seen at [facility] 11/03 and started on bactrim and keflex. Pt in tonight c/o worseening pain and swelling "the redness is a little better thou. --20:28 Kaia Bernal R.N. 20:20 11/07/16. BP: 138/59. HR: 80. RR: 20. O2 saturation: 100%. Temp: 98.5 F. Pain level now: 03/16. --20:28 Kaia Bernal R.N. Weight: 60.3 kg stated. Height/Length: 63 inches Per Patient. BMI: 23.6. --20:23 Kaia Bernal R.N. Medications Atorvastatin Calcium Oral 20 mg, daily. Cyclobenzaprine HCl Oral 10 mg, daily. Folic Acid Oral. Fosamax Oral. Furosemide Oral 20 mg, daily. Hydrocodone-Acetaminophen Oral 5 mg, 2x a day. Iron dialy. Levothyroxine Sodium Oral 150 mcg, daily. PriLOSEC Oral 20 mg, daily. Promacta Oral (Tablet 12.5 mg), 3x a week. Spironolactone Oral 50 mg, daily. --20:27 Kaia Bernal R.N. Bactrim BID started 11/03. --20:27 Kaia Bernal R.N. Keflex 500mg every 8 hours, started on 11/03. --20:28 Kaia Bernal R.N. Allergies NKDA. --20:27 Kaia Bernal R.N. History Arrived by private vehicle. Historian: patient. Accompanied by daughter. Primary physician (rell). Reported as (rt hand). --20:28 Kaia Bernal R.N. PROBLEMS: Cellulitis. Leukopenia. Benign Positional Vertigo. Dizziness. Vertigo. Ascites. Thrombocytopenia. Laceration. Renal Failure. Hypoglycemia. Fall. Rectal Bleed. Hemorrhoids. Cystitis. URI. Bronchitis. Costochondritis. Chest Wall Pain. Hyperlipidemia. Congestive Heart Failure. Arrhythmia. Coronary Artery Disease. Anemia. Arthritis. Back Pain. Hypothyroidism. Myocardial Infarction. Diabetes Mellitus. Hypertension. --20:26 Kaia Bernal R.N. ADDITIONAL SURGERIES: Abdominal Hernia Repair. Cholecystectomy. Coronary Artery Bypass Graft. . Hernia Repair. Hysterectomy. Pacemaker. Tonsillectomy. --20:26 Kaia Bernal R.N. Interventions ID band on patient. To treatment room. --20:28 Kaia Bernal R.N. PHYSICAL ASSESSMENT 20:17. Ambulatory to room. Patient gowned. GENERAL / NEURO / PSYCH: Alert. Appears in pain. Oriented X 4. RESPIRATORY: Respirations not labored. SKIN: Skin tenderness present. Swelling present. Increased warmth present. Erythema present. --20:29 Kaia Bernal R.N. NURSING PROGRESS NOTES 20:17. Patient gowned. Head of bed elevated. Reassurance given. Patient identifiers checked. Call light placed in reach. Side rails up. Bed placed in lowest position. Patient ready for evaluation- chart flagged. --20:29 Kaia Bernal R.N. 21:00 11/07/2016 One (1) unsuccessful IV access attempt including the right antecubital space. Applied bandaid. --21:18 Kaia Bernal R.N. 20:30. Portable chest x-ray ordered, performed and shown to the ED physician. --21:18 Kaia Bernal R.N. 21:00 attempted IV without success. ERPA notified. --21:37 Kaia Bernal R.N. 21:30 11/07/2016 Site #1 started via IV in the left antecubital space with an 20g angiocath, with aseptic technique and good blood return; two attempts. Blood drawn: rainbow set. Labeled in the presence of the patient and sent to the lab. --21:39 Shelly Duque R.N. 21:30 11/07/16. ( Assist to primary RN for IV start and blood drawn). --21:39 Shelly Duque R.N. 22:00. Patient ID band checked for patient name and birthdate: patient confirmed. Blood samples drawn. --22:36 Kaia Bernal R.N. 22:30. Volar upper extremity splint applied to right forearm, wrist and hand by nurse. Distal pulses intact, sensation intact and motor within normal limits. --22:37 Kaia Bernal R.N. 22:35 11/07/2016 Site #1 removed upon discharge. Pressure dressing applied. --23:00 Kaia Bernal R.N. 22:35 11/07/2016 IV Saline Lock Drip IV Discontinued: bag #1 STOPPED upon discharge. Total amount infused: 0 mL. IV patency established. IV site checked: no pain, redness, or swelling. IV flushed thoroughly. --23:00 Kaia Bernal R.N. DISPOSITION / DISCHARGE 22:45. Condition at departure: unchanged and stable. No learning barriers present. Discharge instructions provided and reviewed with the patient and family. Reviewed medication(s) (cont home meds). Treatments reviewed (weark splint, use heat packs 4x/day). Patient and family verbalized understanding. Written instructions provided in Panamanian. The patient was discharged home and accompanied by family. She left the Emergency Department ambulatory and via private vehicle. Driving (daughter). --22:58 Kaia Bernal R.N. 22:45 11/07/16. BP: 132/64. HR: 78. RR: 18. O2 saturation: 100%. Temp: deferred. Pain level now: 03/16. --22:58 Kaia Bernal R.N. Locked/Released at 11/07/2016 23:03 by Kaia Bernal R.N.
--- NOTE | 2016-11-07 22:39 | ED ORDER SUMMARY ---
..... Patient: ROXANA HERNANDEZ OrderSheet [facility] VisitID: [id number] [address] [place] [address] 76y, F Registration Date/Time: 11/07/2016 ORDER SHEET Weight: 60.3 kg (stated) Allergies: NKDA GENERAL ORDERS: CBC w Diff Urgent (20:27 11/07/2016 EKoroleva P.A.-C) (Ack 20:34 CHategekimana) (22:24 DDean R.N.) BMP Urgent (20:27 11/07/2016 EKoroleva P.A.-C) (Ack 20:34 CHategekimana) (22:24 DDean R.N.) Hand 3 or 4V Right Urgent (20:28 11/07/2016 EKoroleva P.A.-C) (Ack 20:34 CHategekimana) (20:44 MCampbell) Sed Rate Urgent (20:28 11/07/2016 EKoroleva P.A.-C) (Ack 20:34 CHategekimana) (22:24 DDean R.N.) CRP Urgent (20:28 11/07/2016 EKoroleva P.A.-C) (Ack 20:34 CHategekimana) (22:24 DDean R.N.) PCT (Procalcitonin) Urgent (20:30 11/07/2016 EKoroleva P.A.-C) (Ack 20:35 CHategekimana) (22:24 DDean R.N.) Lactate, Serum Urgent (20:30 11/07/2016 EKoroleva P.A.-C) (Ack 20:35 CHategekimana) (22:24 DDean R.N.) POC Glucose (20:30 11/07/2016 EKoroleva P.A.-C) (Cancelled: Other22:59 DDean R.N.) Splint (UE) (Right) (volar / right hand, please talk to me Markus Karimi) (22:25 11/07/2016 EKoroleva P.A.-C) (22:34 DDean R.N.) MEDICATION ORDERS: IV FLUIDS: IV Saline Lock (20:27 11/07/2016 Beba Bartholomew) ([facility] 20:30 DDean R.N.) (22:24 DDean R.N.) ORDER SHEET NOTES: [Electronically signed by Marycarmen Perales P.A.-C (22:58 11/07/2016)] [Electronically signed by Kaia Bernal R.N. (23:02 11/07/2016)] [Electronically locked/signed by Kaia Bernal R.N. (23:02 11/07/2016)]
--- NOTE | 2016-11-07 22:39 | ED NURSING NOTES ---
Clinical Report - Nurses [facility] [address] [place] [address] 11/07/2016 20:12 Patient: ROXANA HERNANDEZ TRIAGE Triage time 2016. Acuity: LEVEL 4. Chief Complaint: pt was seen at [facility] 11/03 and started on bactrim and keflex. Pt in tonight c/o worseening pain and swelling "the redness is a little better thou. --20:28 Kaia Bernal R.N. 20:20 11/07/16. BP: 138/59. HR: 80. RR: 20. O2 saturation: 100%. Temp: 98.5 F. Pain level now: 03/16. --20:28 Kaia Bernal R.N. Weight: 60.3 kg stated. Height/Length: 63 inches Per Patient. BMI: 23.6. --20:23 Kaia Bernal R.N. Medications Atorvastatin Calcium Oral 20 mg, daily. Cyclobenzaprine HCl Oral 10 mg, daily. Folic Acid Oral. Fosamax Oral. Furosemide Oral 20 mg, daily. Hydrocodone-Acetaminophen Oral 5 mg, 2x a day. Iron dialy. Levothyroxine Sodium Oral 150 mcg, daily. PriLOSEC Oral 20 mg, daily. Promacta Oral (Tablet 12.5 mg), 3x a week. Spironolactone Oral 50 mg, daily. --20:27 Kaia Bernal R.N. Bactrim BID started 11/03. --20:27 Kaia Bernal R.N. Keflex 500mg every 8 hours, started on 11/03. --20:28 Kaia Bernal R.N. Allergies NKDA. --20:27 Kaia Bernal R.N. History Arrived by private vehicle. Historian: patient. Accompanied by daughter. Primary physician (rell). Reported as (rt hand). --20:28 Kaia Bernal R.N. PROBLEMS: Cellulitis. Leukopenia. Benign Positional Vertigo. Dizziness. Vertigo. Ascites. Thrombocytopenia. Laceration. Renal Failure. Hypoglycemia. Fall. Rectal Bleed. Hemorrhoids. Cystitis. URI. Bronchitis. Costochondritis. Chest Wall Pain. Hyperlipidemia. Congestive Heart Failure. Arrhythmia. Coronary Artery Disease. Anemia. Arthritis. Back Pain. Hypothyroidism. Myocardial Infarction. Diabetes Mellitus. Hypertension. --20:26 Kaia Bernal R.N. ADDITIONAL SURGERIES: Abdominal Hernia Repair. Cholecystectomy. Coronary Artery Bypass Graft. . Hernia Repair. Hysterectomy. Pacemaker. Tonsillectomy. --20:26 Kaia Bernal R.N. Interventions ID band on patient. To treatment room. --20:28 Kaia Bernal R.N. PHYSICAL ASSESSMENT 20:17. Ambulatory to room. Patient gowned. GENERAL / NEURO / PSYCH: Alert. Appears in pain. Oriented X 4. RESPIRATORY: Respirations not labored. SKIN: Skin tenderness present. Swelling present. Increased warmth present. Erythema present. --20:29 Kaia Bernal R.N. NURSING PROGRESS NOTES 20:17. Patient gowned. Head of bed elevated. Reassurance given. Patient identifiers checked. Call light placed in reach. Side rails up. Bed placed in lowest position. Patient ready for evaluation- chart flagged. --20:29 Kaia Bernal R.N. 21:00 11/07/2016 One (1) unsuccessful IV access attempt including the right antecubital space. Applied bandaid. --21:18 Kaia Bernal R.N. 20:30. Portable chest x-ray ordered, performed and shown to the ED physician. --21:18 Kaia Bernal R.N. 21:00 attempted IV without success. ERPA notified. --21:37 Kaia Bernal R.N. 21:30 11/07/2016 Site #1 started via IV in the left antecubital space with an 20g angiocath, with aseptic technique and good blood return; two attempts. Blood drawn: rainbow set. Labeled in the presence of the patient and sent to the lab. --21:39 Shelly Duque R.N. 21:30 11/07/16. ( Assist to primary RN for IV start and blood drawn). --21:39 Shelly Duque R.N. 22:00. Patient ID band checked for patient name and birthdate: patient confirmed. Blood samples drawn. --22:36 Kaia Bernal R.N. 22:30. Volar upper extremity splint applied to right forearm, wrist and hand by nurse. Distal pulses intact, sensation intact and motor within normal limits. --22:37 Kaia Bernal R.N. 22:35 11/07/2016 Site #1 removed upon discharge. Pressure dressing applied. --23:00 Kaia Bernal R.N. 22:35 11/07/2016 IV Saline Lock Drip IV Discontinued: bag #1 STOPPED upon discharge. Total amount infused: 0 mL. IV patency established. IV site checked: no pain, redness, or swelling. IV flushed thoroughly. --23:00 Kaia Bernal R.N. DISPOSITION / DISCHARGE 22:45. Condition at departure: unchanged and stable. No learning barriers present. Discharge instructions provided and reviewed with the patient and family. Reviewed medication(s) (cont home meds). Treatments reviewed (weark splint, use heat packs 4x/day). Patient and family verbalized understanding. Written instructions provided in Zimbabwean. The patient was discharged home and accompanied by family. She left the Emergency Department ambulatory and via private vehicle. Driving (daughter). --22:58 Kaia Bernal R.N. 22:45 11/07/16. BP: 132/64. HR: 78. RR: 18. O2 saturation: 100%. Temp: deferred. Pain level now: 03/16. --22:58 Kaia Bernal R.N. Locked/Released at 11/07/2016 23:03 by Kaia Bernal R.N.
--- NOTE | 2016-11-07 23:03 | ED MAR SUMMARY ---
..... Medication Administration Record [facility] [address] [place], [place] [id number] Patient: ROXANA HERNANDEZ Visit ID: [id number] 76y, F Weight: 60.3 kg Height/Length: 63 in BMI: 23.6 ALLERGIES: NKDA
--- NOTE | 2016-11-07 23:03 | ED MED RECONCILIATION SUMMARY ---
Patient: ROXANA HERNANDEZ Medication Reconciliation Report [facility] VisitID: [id number] [address] [place] [address] 76y, F Registration Date/Time: 11/07/2016 Weight: 60.3 kg Height/Length: 63 in. BMI: 23.6 ALLERGIES: NKDA The patient's Home Medications are listed below: CONTINUE TAKING THE FOLLOWING MEDICATIONS: Atorvastatin Calcium Oral 20 mg, daily Bactrim BID started 11/03 Cyclobenzaprine HCl Oral 10 mg, daily Folic Acid Oral Furosemide Oral 20 mg, daily Hydrocodone-Acetaminophen Oral 5 mg, 2x a day Iron dialy Keflex 500mg every 8 hours, started on 11/03 Levothyroxine Sodium Oral 150 mcg, daily PriLOSEC Oral 20 mg, daily Promacta Oral (12.5 mg), 3x a week Spironolactone Oral 50 mg, daily THE FOLLOWING MEDICATIONS NEED TO BE RECONCILED: Fosamax Oral The source(s) of the original Home Medication information: Not obtained. The following Medications were given to the patient in the Emergency Department: None. The following Medications were prescribed to the patient: None.
--- NOTE | 2016-11-07 23:03 | ED MAR SUMMARY ---
..... Medication Administration Record [facility] [address] [place], [place] [id number] Patient: ROXANA HERNANDEZ Visit ID: [id number] 76y, F Weight: 60.3 kg Height/Length: 63 in BMI: 23.6 ALLERGIES: NKDA
--- NOTE | 2016-11-07 23:03 | ED MED RECONCILIATION SUMMARY ---
Patient: ROXANA HERNANDEZ Medication Reconciliation Report [facility] VisitID: [id number] [address] [place] [address] 76y, F Registration Date/Time: 11/07/2016 Weight: 60.3 kg Height/Length: 63 in. BMI: 23.6 ALLERGIES: NKDA The patient's Home Medications are listed below: CONTINUE TAKING THE FOLLOWING MEDICATIONS: Atorvastatin Calcium Oral 20 mg, daily Bactrim BID started 11/03 Cyclobenzaprine HCl Oral 10 mg, daily Folic Acid Oral Furosemide Oral 20 mg, daily Hydrocodone-Acetaminophen Oral 5 mg, 2x a day Iron dialy Keflex 500mg every 8 hours, started on 11/03 Levothyroxine Sodium Oral 150 mcg, daily PriLOSEC Oral 20 mg, daily Promacta Oral (12.5 mg), 3x a week Spironolactone Oral 50 mg, daily THE FOLLOWING MEDICATIONS NEED TO BE RECONCILED: Fosamax Oral The source(s) of the original Home Medication information: Not obtained. The following Medications were given to the patient in the Emergency Department: None. The following Medications were prescribed to the patient: None.
--- NOTE | 2016-11-07 23:03 | ED DISCHARGE INSTRUCTIONS ---
Patient: ROXANA HERNANDEZ General Instructions [facility] VisitID: [id number] [place] [address] 76y, F Registration Date/Time: 11/07/2016 Acute superficial thrombophlebitis of the right arm. Right Hand Cellulites Acute on Chronic Renal Failure Anemia. INSTRUCTIONS Elevate affected areas above chest level. Limit use of your hand (Elevate). (elevate Continue use of YOUR antibiotics Warm Packs). Your Current Medications: CONTINUE TAKING THE FOLLOWING MEDICATIONS: Atorvastatin Calcium Oral : 20 mg daily. Bactrim BID started 11/03*. Cyclobenzaprine HCl Oral : 10 mg daily. Folic Acid Oral. Furosemide Oral : 20 mg daily. Hydrocodone-Acetaminophen Oral : 5 mg 2x a day. Iron dialy*. Keflex 500mg every 8 hours, started on 11/03*. Levothyroxine Sodium Oral : 150 mcg daily. PriLOSEC Oral : 20 mg daily. Promacta Oral : Tablet 12.5 mg, 3x a week. Spironolactone Oral : 50 mg daily. Follow-up: Follow up with your doctor in two days. ADDITIONAL INFORMATION Phlebitis, Superficial Phlebitis is the name for inflammation of a vein. This results in local redness, swelling, warmth and pain. This may occur after medicine has been given by vein as a result of the irritating effect of the medicine. It can also occur as a result of IV drug use. Superficial phlebitis involves only those veins close to the surface. There is no danger of a clot traveling to the lung or brain, unlike deep blood clots of the legs. Therefore, this condition can be safely treated at home. Home Care: Heat is helpful. Use a heating pad or soak the inflamed part in a hot tub for 10 minutes at a time. You may use ibuprofen (Motrin, Advil) to control pain, unless another medicine was prescribed. [ NOTE : If you have chronic kidney disease or ever had a stomach ulcer or GI bleeding, talk with your doctor before using these medicines.] If Your Leg Is Affected: Unless pain is severe, you may walk. It is important to sit often and elevate the leg. Avoid prolonged sitting or standing. Use support hose or an elastic wrap to compress the leg and reduce swelling. If Your Arm Is Affected: Elevate the arm. If you were given a sling, take your arm out from time to time and move it around to increase the circulation. Use an elastic wrap if there is a lot of swelling. Follow Up with your doctor as advised. Get Prompt Medical Attention if any of the following occur: Shortness of breath or painful breathing Chest pain or cough Fever of 100.4F (38C) or higher, or as directed by your healthcare provider Increasing swelling or pain Spreading redness You have been given the following additional information: Thrombophlebitis, Superficial Limit use of your hand (Elevate). (Electronically signed by Marycarmen Perales P.A.-C 11/07/2016 22:58)
== END 2016-11-07 22:45 | disposition home or self-care (01) ==
LOC: ED SRH 20:13
DX: I82.611 Acute embolism and thrombosis of superficial veins of right upper extremity (principal); L03.113 Cellulitis of right upper limb; I12.9 Hypertensive chronic kidney disease with stage 1 through stage 4 chronic kidney disease, or unspecified chronic kidney disease; E11.22 Type 2 diabetes mellitus with diabetic chronic kidney disease; N18.9 Chronic kidney disease, unspecified; N17.9 Acute kidney failure, unspecified; Z79.4 Long term (current) use of insulin; D63.1 Anemia in chronic kidney disease; I50.9 Heart failure, unspecified; I25.2 Old myocardial infarction

== ENCOUNTER 2016-11-23 12:34 | Emergency (ER) | payer OTHER ==
--- NOTE | 2016-11-23 14:06 | ED NURSING NOTES ---
Clinical Report - Nurses [facility] [address] [place] [address] 11/23/2016 12:33 Patient: ROXANA HERNANDEZ TRIAGE Triage time 12:47. Chief Complaint: (hand infection has spread to pt's feet, she thinks, especially the right foot). Alert. SEPSIS SCREEN: Sepsis Screen. Negative (no infection suspected/documented). --12:51 Rose Marie Martinez R.N. 12:45 11/23/16. BP: 135. HR: 87. RR: 18. O2 saturation: 100%. Temp: 97.7 F. Pain level now: 02/13. --12:51 Rose Marie Martinez R.N. Weight: 61.2 kg stated. Height/Length: 63 inches Per Patient. BMI: 23.9. --12:49 Rose Marie Martinez R.N. Medications Atorvastatin Calcium Oral 20 mg, daily. Cyclobenzaprine HCl Oral 10 mg, daily. Folic Acid Oral. Fosamax Oral. Furosemide Oral 20 mg, daily. Hydrocodone-Acetaminophen Oral 5 mg, 2x a day. Iron dialy. Keflex 500mg every 8 hours, started on 11/03. Levothyroxine Sodium Oral 150 mcg, daily. PriLOSEC Oral 20 mg, daily. Promacta Oral (Tablet 12.5 mg), 3x a week. Spironolactone Oral 50 mg, daily. --12:48 Rose Marie Martinez R.N. Allergies NKDA. --12:48 Rose Marie Martinez R.N. History Arrived by private vehicle. Historian: patient. Accompanied by daughter. Primary physician (Rudy). This started yesterday. SOCIAL HX: Former smoker, end date 1986. No alcohol use or drug use. LEARNING NEEDS ASSESSMENT: The learning needs assessment revealed no barriers. FUNCTIONAL ASSESSMENT: Functional assessment performed: mobility impairment present; hearing impairment present. --12:51 Rose Marie Martinez R.N. PROBLEMS: Thrombophlebitis. Cellulitis. Leukopenia. Benign Positional Vertigo. Dizziness. Vomiting. Weakness. Ascites. Thrombocytopenia. Laceration. Skin Avulsion. Renal Failure. Hypoglycemia. Fall. Rectal Bleed. Hemorrhoids. Abdominal Pain. Cystitis. Contusion. URI. Bronchitis. Costochondritis. Chest Wall Pain. Hyperlipidemia. Congestive Heart Failure. Arrhythmia. Coronary Artery Disease. Anemia. Arthritis. Back Pain. Hypothyroidism. Myocardial Infarction. Diabetes Mellitus. Hypertension. --12:49 Rose Marie Martinez R.N. ADDITIONAL SURGERIES: Abdominal Hernia Repair. Cholecystectomy. Coronary Artery Bypass Graft. . Hernia Repair. Hysterectomy. Pacemaker. Tonsillectomy. --12:49 Rose Marie Martinez R.N. Interventions ID band on patient. To room. --12:51 Rose Marie Martinez R.N. PHYSICAL ASSESSMENT Ambulatory to room. GENERAL / NEURO / PSYCH: Alert. Oriented X 4. Appears in pain. HEENT: Mucous membranes are pink. RESPIRATORY: Respirations not labored. CVS: Capillary refill is greater than 2 seconds. Pulses within normal limits. GI / : Abdominal distention noted as firm. SKIN: Skin is warm and dry. --13:11 Neha Beavers R.N. NURSING PROGRESS NOTES The plan of care for this patient includes an assessment with efforts to address the presence of pain. Oxygen administered. Head of bed elevated. Two patient identifiers checked. Call light placed in reach. Side rails up x 2. Bed placed in lowest position. Brakes of bed on. --13:11 Neha Beavers R.N. 13:12 11/23/2016 Site #1 started via IV in the left antecubital space with an 20g angiocath, with aseptic technique and good blood return; one attempt. Blood drawn: rainbow set. Labeled in the presence of the patient and sent to the lab. Saline lock flushed with 10 mL saline. --13:12 Neha Beavers R.N. ( Labs drawn include rainbow, lactate, and BC's x 1.). --13:19 Rose Marie Martinez R.N. 13:19 11/23/16. BP: 129/58. HR: 82. RR: 2. O2 saturation: 96%. Pain level now: 510. --13:20 Neha Beavers R.N. 14:14 11/23/2016 DOXYCYCLINE MONOHYDRATE PO Tablets 100 mg given. Allergies verified and confirmed 5 rights. --14:14 Neha Beavers R.N. 14:15 11/23/2016 Hydrocodone-APAP (Hydrocodone-Acetaminophen) PO 5/325 mg Tablets 1 tab given. Allergies verified, confirmed 5 rights and sedative warning given to the patient. --14:15 Neha Beavers R.N. 14:16 11/23/16. BP: 126/57. HR: 94. RR: 16. O2 saturation: 99%. Pain level now: 510. --14:17 Neha Beavers R.N. DISPOSITION / DISCHARGE 14:20 11/23/16. BP: 126/56. HR: 94. RR: 16. O2 saturation: 99%. Pain level now: 510. --14:20 Neha Beavers R.N. Departure time: 14:Nov 23 2016. Condition at departure: unchanged. The following issues were addressed: pain control, comfort issues and follow up care. No learning barriers present. Discharge instructions provided and reviewed with the patient. Reviewed medication(s) side effects, precautions, dosing and course information. Prescription(s) given to the patient. Reviewed referral to a primary care physician for followup. Patient verbalized understanding. Written instructions provided in Yoruba. The patient was discharged home and accompanied by family. She left the Emergency Department ambulatory and via private vehicle. Family member driving. --14:34 Neha Beavers R.N. 14:34 11/23/2016 Site #1 removed upon discharge. Bandage applied. --14:34 Neha Beavers R.N. Locked/Released at 11/25/2016 15:03 by Neha Beavers R.N.
--- NOTE | 2016-11-23 14:06 | ED ORDER SUMMARY ---
..... Patient: ROXANA HERNANDEZ OrderSheet [facility] VisitID: [id number] [place] [address] 76y, F Registration Date/Time: 11/23/2016 ORDER SHEET Weight: 61.2 kg (stated) Allergies: NKDA GENERAL ORDERS: CBC w Diff Urgent (13:09 11/23/2016 EKoroleva P.A.-C) (Ack 13:11 PWeiler ER Tech1) (13:12 KKnebel R.N.) BMP Urgent (13:09 11/23/2016 EKoroleva P.A.-C) (13:12 KKnebel R.N.) Lactate, Serum Urgent (13:09 11/23/2016 EKoroleva P.A.-C) (Ack 13:11 PWeiler ER Tech1) (13:12 KKnebel R.N.) PCT (Procalcitonin) Urgent (13:09 11/23/2016 EKoroleva P.A.-C) (Ack 13:11 PWeiler ER Tech1) (13:12 KKnebel R.N.) CRP Urgent (13:09 11/23/2016 EKoroleva P.A.-C) (Ack 13:11 PWeiler ER Tech1) (13:12 KKnebel R.N.) Sed Rate Urgent (13:09 11/23/2016 EKoroleva P.A.-C) (Ack 13:11 PWeiler ER Tech1) (13:12 KKnebel R.N.) Vitals (BP) (13:14 11/23/2016 EKoroleva P.A.-C) (13:18 KKnebel R.N.) MEDICATION ORDERS: Doxycycline Monohydrate PO 100 mg (NOW) (14:02 11/23/2016 EKoroleva P.A.-C) (14:14 KKnebel R.N.) Hydrocodone-APAP PO 5/325 mg (NOW, HIGH ALERT MEDICATION) (14:02 11/23/2016 EKoroleva P.A.-C) (14:15 KKnebel R.N.) IV FLUIDS: IV Saline Lock (13:09 11/23/2016 Beba Bartholomew) (13:12 Gillian Owens) ORDER SHEET NOTES: [Electronically signed by Marycarmen Perales P.A.-C (14:41 11/23/2016)] [Electronically signed by Neha Beavers R.N. (15:03 11/25/2016)] [Electronically locked/signed by Neha Beavers R.N. (15:03 11/25/2016)]
--- NOTE | 2016-11-23 14:06 | ED CLINICAL REPORT ---
Clinical Report - Physicians/Mid Levels [facility] [address] [place] [address] 11/23/2016 12:33 Patient: ROXANA HERNANDEZ Time Seen: 13:12 Nov 23 2016. Arrived- By private vehicle. Historian- patient. HISTORY OF PRESENT ILLNESS Chief Complaint: SKIN RASH. This started 2 - 3 weeks [employer] and is still present. It is described as painful. It has been located on the right upper extremity. No cause has been identified. (patient reports a rash to the right hand over the last 2-3 weeks, previously was on antibiotics, which helped alleviate some of her symptoms and swelling. Denies any injury or trauma. Reports she continues to have pain to the area and her rash. Has seen her primary care provider. Patient had a recent blood transfusion yesterday. Patient reports also awakening yesterday with bilateral foot pain on the bottom in the top according to her. Denies any injury. Here with her daughter. Patient ambulates with a walker. NO known trauma to feet. No h/o similar. Pt denies gout/ pseudogout. Has been off abx now for probably about 10 days she reports. NO sob chest pain. Some chills, possible fevers, none measured.). REVIEW OF SYSTEMS The patient has had chills. No cough, hoarseness, headache or nausea. All systems otherwise negative, except as recorded above. PAST HISTORY Problems: Thrombophlebitis. Cellulitis. Leukopenia. Benign Positional Vertigo. Dizziness. Vomiting. Vertigo. Weakness. Ascites. Thrombocytopenia. Laceration. Skin Avulsion. Renal Failure. Hypoglycemia. Fall. Rectal Bleed. Hemorrhoids. Abdominal Pain. Cystitis. Contusion. URI. Bronchitis. Costochondritis. Chest Wall Pain. Hyperlipidemia. Congestive Heart Failure. Arrhythmia. Coronary Artery Disease. Anemia. Abnormal Test. Arthritis. Back Pain. Hypothyroidism. Myocardial Infarction. Diabetes Mellitus. Hypertension. Additional Surgeries: Abdominal Hernia Repair. Cholecystectomy. Coronary Artery Bypass Graft. . Hernia Repair. Hysterectomy. Pacemaker. Tonsillectomy. Medications: Atorvastatin Calcium Oral 20 mg, daily. Cyclobenzaprine HCl Oral 10 mg, daily. Folic Acid Oral. Fosamax Oral. Furosemide Oral 20 mg, daily. Hydrocodone-Acetaminophen Oral 5 mg, 2x a day. Iron dialy. Keflex 500mg every 8 hours, started on 11/03. Levothyroxine Sodium Oral 150 mcg, daily. PriLOSEC Oral 20 mg, daily. Promacta Oral (Tablet 12.5 mg), 3x a week. Spironolactone Oral 50 mg, daily. Allergies: NKDA. SOCIAL HISTORY Former smoker. No alcohol use. ADDITIONAL NOTES The nursing notes have been reviewed. PHYSICAL EXAM Vital Signs: 11/23/2016 12:45 BP: 135. HR: 87. RR: 18. O2 saturation: 100%. Temp: 97.7 F. Pain level now: 02/13. CVS: Normal heart rate and rhythm. Heart sounds normal. Respiratory: No respiratory distress. Breath sounds normal. Skin: Erythema (On the wrist dorsal surface, with mild swelling no warmth. Good distal range of motion, extension and flexion. Good radial pulse.). Skin rash present- On the left aspect of her forearm, areas of ecchymosis. No warmth, lymphangitis, induration, weeping or tenderness. No inflammation or crusting. There is swelling. Extremities: No calf tenderness. (tender dorsal/ plantar surface of b/l feet. NO rash. No erythema. NO warmth. Full rom.). Neuro: Oriented X 3. LABS, X-RAYS, AND EKG Laboratory Tests: CBC w Diff: (EUN: 11/23/2016 13:06) ( MsgRcvd 11/23/2016 14:14) Final results Test Result Flag Units (Reference) WHITE BLOOD COUNT 4.0 L K/uL (4.5-11.5) RED BLOOD COUNT 3.14 L M/uL (4.00-5.20) HEMOGLOBIN 9.3 L gm/dL (12.0-16.0) HEMATOCRIT 27.8 L % (36.0-46.0) MEAN CELL VOLUME 89 fL (80-100) MEAN CORPUSCULAR HGB 30 pg (26-34) MEAN CORPUSCULAR HGB CONC 33 g/dL (31-37) RED CELL DISTRIBUTION WIDTH 18.2 H % (11.6-14.8) PLATELET COUNT 36 L K/uL (150-400) [facility]ST[facility]. NEUTROPHIL % 84.9 H % (50-75) LYMPH % 5.3 L % (25-40) MONO % 7.1 % (3-14) EOSINOPHIL % 2.3 % (0-4) BASOPHIL % 0.4 % (0-2) SED RATE WESTERGREN 46 H mm/hr (0-30) Lactate, Serum: (EUN: 11/23/2016 13:06) ( [facility] 11/23/2016 13:40) Final results Test Result Flag Units (Reference) LACTIC ACID 1.1 mmol/L (0.4-2.0) [id number]: (EUN: 11/23/2016 13:06) ( [facility] 11/23/2016 14:04) Final results Test Result Flag Units (Reference) PROCALCITONIN <0.5 ng/mL (0-0.5) PCT Concentration: Interpretation : Risk/option for action PCT <=0.5 ng/mL : Systemic : Low risk forinfection(sepsis): progression to severeis not likely. : systemic infection.Local bacterial : CAUTION-PCT levelsinfection is : below 0.5 ng/mL do notpossible. : exclude an infection,because localizedinfections (withoutsystemic signs) may beassociated with suchlow levels. If PCT ismeasured very earlyafter a bacterialchallenge (usually <6hours), these valuesmay still be low. Inthis case PCT shouldbe re-assessed 6-24hours later. PCT >0.5 and : Systemic infection: Moderate risk for<= 2 ng/mL : (sepsis) is : progression to severepossible, but : systemic infection.other conditions : The patient should beare known to : closely monitoredelevate PCT. : both clinically andby re-assessing PCTwithin 6-24 hours. PCT > 2 ng/mL : Systemic infection: High risk for(sepsis) is likely: progression to severeunless other : systemic infection.causes are known. : PCT >= 10 ng/mL : Important systemic: High likelihood ofinflammatory : severe sepsis orresponse, almost : septic shock.exclusively due to:severe bacterial :sepsis or septic :shock. : BMP: (EUN: 11/23/2016 13:06) ( MsgRcvd 11/23/2016 13:46) Final results Test Result Flag Units (Reference) GLUCOSE 247 H mg/dL (70-110) BUN 62 H mg/dL (7-18) CREATININE 2.9 H mg/dL (0.6-1.3) Estimated GFR 16.68 mL/min Estimated GFR- 20.22 mL/min Note: Persistent reduction over 3 months in eGFR<60 mL/min/1.73 m2 defines CKD. Patients with eGFR values>=60 mL/min/1.73 m2 may also have CKD if evidence ofpersistent proteinuria. Additional information may be foundat www.kidney.org. SODIUM 134 L mmol/L (136-145) POTASSIUM 4.3 mmol/L (3.5-5.1) CHLORIDE 103 mmol/L (98-107) CARBON DIOXIDE 22 mmol/L (21-32) CALCIUM 8.3 L mg/dL (8.5-10.1) C-REACTIVE PROTEIN 2.5 H mg/dL (0.0-0.9) . PROGRESS AND PROCEDURES Course of Care: patient is familiar to me, was recently seen about 2 weeks ago, and previous ER visit. She has finished a course of Bactrim and Keflex. Her otherwise labs are similar to previous, with signs of anemia, hemoglobin of 9.3. She has signs of thorombocytopenia [id number], with leukocytopenia 4.0 as well. there are no obvious signs of injury to her feet. Unclear she has had gout or pseudogout, however she declines such knowledge. Will start on doxycycline. Patient is urged to follow-up with her primary care provider, she may need specialist referral for orthopedics or rheumatology. Nonseptic in the ER. 11/23/2016 14:20 BP: 126/56. HR: 94. RR: 16. O2 saturation: 99%. Pain level now: 5/10. Patient is stable. Symptoms better. Patient/family counseled. Disposition: Discharged. Condition: good. CLINICAL IMPRESSION Cellulitis of the right wrist and right hand. Arthritis of the right ankle, right foot, left ankle and left foot. Chronic Renal Insufficiency DM Anemia. INSTRUCTIONS (FOLLOW UP WITH YOUR DR IN 2 days Take 1 tablet of hydrocodone every 6 hours, you have this prescribed as well, now will take every 6 hours instead of every 12 hours). Your Current Medications: CONTINUE TAKING THE FOLLOWING MEDICATIONS: Atorvastatin Calcium Oral : 20 mg daily. Cyclobenzaprine HCl Oral : 10 mg daily. Folic Acid Oral. Fosamax Oral. Furosemide Oral : 20 mg daily. Hydrocodone-Acetaminophen Oral : 5 mg 2x a day. Iron dialy*. Keflex 500mg every 8 hours, started on 11/03*. Levothyroxine Sodium Oral : 150 mcg daily. PriLOSEC Oral : 20 mg daily. Promacta Oral : Tablet 12.5 mg, 3x a week. Spironolactone Oral : 50 mg daily. Prescription Medications: Hydrocodone/APAP 5mg / 325mg: take 1 orally every 12 hours. Dispense ten (10). No refill. Doxycycline 100 mg: Take 1 capsule orally every 12 hours for 10 days. No refill. Follow-up: Follow up with your doctor DR. Grant in two days. (Electronically signed by Marycarmen Perales P.A.-C 11/23/2016 14:41)
--- NOTE | 2016-11-23 14:06 | ED ORDER SUMMARY ---
..... Patient: ROXANA HERNANDEZ OrderSheet [facility] VisitID: [id number] [place] [address] 76y, F Registration Date/Time: 11/23/2016 ORDER SHEET Weight: 61.2 kg (stated) Allergies: NKDA GENERAL ORDERS: CBC w Diff Urgent (13:09 11/23/2016 EKoroleva P.A.-C) (Ack 13:11 PWeiler ER Tech1) (13:12 KKnebel R.N.) BMP Urgent (13:09 11/23/2016 EKoroleva P.A.-C) (13:12 KKnebel R.N.) Lactate, Serum Urgent (13:09 11/23/2016 EKoroleva P.A.-C) (Ack 13:11 PWeiler ER Tech1) (13:12 KKnebel R.N.) PCT (Procalcitonin) Urgent (13:09 11/23/2016 EKoroleva P.A.-C) (Ack 13:11 PWeiler ER Tech1) (13:12 KKnebel R.N.) CRP Urgent (13:09 11/23/2016 EKoroleva P.A.-C) (Ack 13:11 PWeiler ER Tech1) (13:12 KKnebel R.N.) Sed Rate Urgent (13:09 11/23/2016 EKoroleva P.A.-C) (Ack 13:11 PWeiler ER Tech1) (13:12 KKnebel R.N.) Vitals (BP) (13:14 11/23/2016 EKoroleva P.A.-C) (13:18 KKnebel R.N.) MEDICATION ORDERS: Doxycycline Monohydrate PO 100 mg (NOW) (14:02 11/23/2016 EKoroleva P.A.-C) (14:14 KKnebel R.N.) Hydrocodone-APAP PO 5/325 mg (NOW, HIGH ALERT MEDICATION) (14:02 11/23/2016 EKoroleva P.A.-C) (14:15 KKnebel R.N.) IV FLUIDS: IV Saline Lock (13:09 11/23/2016 Beba Bartholomew) (13:12 Gillian Owens) ORDER SHEET NOTES: [Electronically signed by Marycarmen Perales P.A.-C (14:41 11/23/2016)] [Electronically signed by Neha Beavers R.N. (15:03 11/25/2016)] [Electronically locked/signed by Neha Beavers R.N. (15:03 11/25/2016)]
--- NOTE | 2016-11-23 14:06 | ED CLINICAL REPORT ---
Clinical Report - Physicians/Mid Levels [facility] [address] [place] [address] 11/23/2016 12:33 Patient: ROXANA HERNANDEZ Time Seen: 13:12 Nov 23 2016. Arrived- By private vehicle. Historian- patient. HISTORY OF PRESENT ILLNESS Chief Complaint: SKIN RASH. 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 It is described as painful. It has been located on the right upper extremity. No cause has been identified. (patient reports a rash to the right hand over the last 2-3 weeks, previously was on antibiotics, which helped alleviate some of her symptoms and swelling. Denies any injury or trauma. Reports she continues to have pain to the area and her rash. Has seen her primary care provider. Patient had a recent blood transfusion yesterday. Patient reports also awakening yesterday with bilateral foot pain on the bottom in the top according to her. Denies any injury. Here with her daughter. Patient ambulates with a walker. NO known trauma to feet. No h/o similar. Pt denies gout/ pseudogout. Has been off abx now for probably about 10 days she reports. NO sob chest pain. Some chills, possible fevers, none measured.). REVIEW OF SYSTEMS The patient has had chills. No cough, hoarseness, headache or nausea. All systems otherwise negative, except as recorded above. PAST HISTORY Problems: Thrombophlebitis. Cellulitis. Leukopenia. Benign Positional Vertigo. Dizziness. Vomiting. Vertigo. Weakness. Ascites. Thrombocytopenia. Laceration. Skin Avulsion. Renal Failure. Hypoglycemia. Fall. Rectal Bleed. Hemorrhoids. Abdominal Pain. Cystitis. Contusion. URI. Bronchitis. Costochondritis. Chest Wall Pain. Hyperlipidemia. Congestive Heart Failure. Arrhythmia. Coronary Artery Disease. Anemia. Abnormal Test. Arthritis. Back Pain. Hypothyroidism. Myocardial Infarction. Diabetes Mellitus. Hypertension. Additional Surgeries: Abdominal Hernia Repair. Cholecystectomy. Coronary Artery Bypass Graft. . Hernia Repair. Hysterectomy. Pacemaker. Tonsillectomy. Medications: Atorvastatin Calcium Oral 20 mg, daily. Cyclobenzaprine HCl Oral 10 mg, daily. Folic Acid Oral. Fosamax Oral. Furosemide Oral 20 mg, daily. Hydrocodone-Acetaminophen Oral 5 mg, 2x a day. Iron dialy. Keflex 500mg every 8 hours, started on 11/03. Levothyroxine Sodium Oral 150 mcg, daily. PriLOSEC Oral 20 mg, daily. Promacta Oral (Tablet 12.5 mg), 3x a week. Spironolactone Oral 50 mg, daily. Allergies: NKDA. SOCIAL HISTORY Former smoker. No alcohol use. ADDITIONAL NOTES The nursing notes have been reviewed. PHYSICAL EXAM Vital Signs: 11/23/2016 12:45 BP: 135. HR: 87. RR: 18. O2 saturation: 100%. Temp: 97.7 F. Pain level now: 02/13. CVS: Normal heart rate and rhythm. Heart sounds normal. Respiratory: No respiratory distress. Breath sounds normal. Skin: Erythema (On the wrist dorsal surface, with mild swelling no warmth. Good distal range of motion, extension and flexion. Good radial pulse.). Skin rash present- On the left aspect of her forearm, areas of ecchymosis. No warmth, lymphangitis, induration, weeping or tenderness. No inflammation or crusting. There is swelling. Extremities: No calf tenderness. (tender dorsal/ plantar surface of b/l feet. NO rash. No erythema. NO warmth. Full rom.). Neuro: Oriented X 3. LABS, X-RAYS, AND EKG Laboratory Tests: CBC w Diff: (EUN: 11/23/2016 13:06) ( MsgRcvd 11/23/2016 14:14) Final results Test Result Flag Units (Reference) WHITE BLOOD COUNT 4.0 L K/uL (4.5-11.5) RED BLOOD COUNT 3.14 L M/uL (4.00-5.20) HEMOGLOBIN 9.3 L gm/dL (12.0-16.0) HEMATOCRIT 27.8 L % (36.0-46.0) MEAN CELL VOLUME 89 fL (80-100) MEAN CORPUSCULAR HGB 30 pg (26-34) MEAN CORPUSCULAR HGB CONC 33 g/dL (31-37) RED CELL DISTRIBUTION WIDTH 18.2 H % (11.6-14.8) PLATELET COUNT 36 L K/uL (150-400) [facility]ST[facility]. NEUTROPHIL % 84.9 H % (50-75) LYMPH % 5.3 L % (25-40) MONO % 7.1 % (3-14) EOSINOPHIL % 2.3 % (0-4) BASOPHIL % 0.4 % (0-2) SED RATE WESTERGREN 46 H mm/hr (0-30) Lactate, Serum: (EUN: 11/23/2016 13:06) ( [facility] 11/23/2016 13:40) Final results Test Result Flag Units (Reference) LACTIC ACID 1.1 mmol/L (0.4-2.0) [id number]: (EUN: 11/23/2016 13:06) ( [facility] 11/23/2016 14:04) Final results Test Result Flag Units (Reference) PROCALCITONIN <0.5 ng/mL (0-0.5) PCT Concentration: Interpretation : Risk/option for action PCT <=0.5 ng/mL : Systemic : Low risk forinfection(sepsis): progression to severeis not likely. : systemic infection.Local bacterial : CAUTION-PCT levelsinfection is : below 0.5 ng/mL do notpossible. : exclude an infection,because localizedinfections (withoutsystemic signs) may beassociated with suchlow levels. If PCT ismeasured very earlyafter a bacterialchallenge (usually <6hours), these valuesmay still be low. Inthis case PCT shouldbe re-assessed 6-24hours later. PCT >0.5 and : Systemic infection: Moderate risk for<= 2 ng/mL : (sepsis) is : progression to severepossible, but : systemic infection.other conditions : The patient should beare known to : closely monitoredelevate PCT. : both clinically andby re-assessing PCTwithin 6-24 hours. PCT > 2 ng/mL : Systemic infection: High risk for(sepsis) is likely: progression to severeunless other : systemic infection.causes are known. : PCT >= 10 ng/mL : Important systemic: High likelihood ofinflammatory : severe sepsis orresponse, almost : septic shock.exclusively due to:severe bacterial :sepsis or septic :shock. : BMP: (EUN: 11/23/2016 13:06) ( MsgRcvd 11/23/2016 13:46) Final results Test Result Flag Units (Reference) GLUCOSE 247 H mg/dL (70-110) BUN 62 H mg/dL (7-18) CREATININE 2.9 H mg/dL (0.6-1.3) Estimated GFR 16.68 mL/min Estimated GFR- 20.22 mL/min Note: Persistent reduction over 3 months in eGFR<60 mL/min/1.73 m2 defines CKD. Patients with eGFR values>=60 mL/min/1.73 m2 may also have CKD if evidence ofpersistent proteinuria. Additional information may be foundat www.kidney.org. SODIUM 134 L mmol/L (136-145) POTASSIUM 4.3 mmol/L (3.5-5.1) CHLORIDE 103 mmol/L (98-107) CARBON DIOXIDE 22 mmol/L (21-32) CALCIUM 8.3 L mg/dL (8.5-10.1) C-REACTIVE PROTEIN 2.5 H mg/dL (0.0-0.9) . PROGRESS AND PROCEDURES Course of Care: patient is familiar to me, was recently seen about 2 weeks ago, and previous ER visit. She has finished a course of Bactrim and Keflex. Her otherwise labs are similar to previous, with signs of anemia, hemoglobin of 9.3. She has signs of thorombocytopenia [id number], with leukocytopenia 4.0 as well. there are no obvious signs of injury to her feet. Unclear she has had gout or pseudogout, however she declines such knowledge. Will start on doxycycline. Patient is urged to follow-up with her primary care provider, she may need specialist referral for orthopedics or rheumatology. Nonseptic in the ER. 11/23/2016 14:20 BP: 126/56. HR: 94. RR: 16. O2 saturation: 99%. Pain level now: 5/10. Patient is stable. Symptoms better. Patient/family counseled. Disposition: Discharged. Condition: good. CLINICAL IMPRESSION Cellulitis of the right wrist and right hand. Arthritis of the right ankle, right foot, left ankle and left foot. Chronic Renal Insufficiency DM Anemia. INSTRUCTIONS (FOLLOW UP WITH YOUR DR IN 2 days Take 1 tablet of hydrocodone every 6 hours, you have this prescribed as well, now will take every 6 hours instead of every 12 hours). Your Current Medications: CONTINUE TAKING THE FOLLOWING MEDICATIONS: Atorvastatin Calcium Oral : 20 mg daily. Cyclobenzaprine HCl Oral : 10 mg daily. Folic Acid Oral. Fosamax Oral. Furosemide Oral : 20 mg daily. Hydrocodone-Acetaminophen Oral : 5 mg 2x a day. Iron dialy*. Keflex 500mg every 8 hours, started on 11/03*. Levothyroxine Sodium Oral : 150 mcg daily. PriLOSEC Oral : 20 mg daily. Promacta Oral : Tablet 12.5 mg, 3x a week. Spironolactone Oral : 50 mg daily. Prescription Medications: Hydrocodone/APAP 5mg / 325mg: take 1 orally every 12 hours. Dispense ten (10). No refill. Doxycycline 100 mg: Take 1 capsule orally every 12 hours for 10 days. No refill. Follow-up: Follow up with your doctor DR. Grant in two days. (Electronically signed by Marycarmen Perales P.A.-C 11/23/2016 14:41)
--- NOTE | 2016-11-25 15:03 | ED MAR SUMMARY ---
..... Medication Administration Record [facility] [address] [place] [address] Patient: ROXANA HERNANDEZ Visit ID: [id number] 76y, F Weight: 61.2 kg Height/Length: 63 in BMI: 23.9 ALLERGIES: NKDA Given 14:14 11/23/2016 Neha Beavers, R.N. Medication Administered: DOXYCYCLINE MONOHYDRATE [PO], Dose: 100 mg Tablets PO. Medication Ordered: Doxycycline Monohydrate PO 100 mg (NOW). Given 14:15 11/23/2016 Neha Beavers, R.N. Medication Administered: HYDROCODONE-APAP [PO] (HYDROCODONE-ACETAMINOPHEN), Dose: 1 tab 5/325 mg Tablets PO. Medication Ordered: Hydrocodone-APAP PO 5/325 mg (NOW, HIGH ALERT MEDICATION).
--- NOTE | 2016-11-25 15:03 | ED MED RECONCILIATION SUMMARY ---
Patient: ROXANA HERNANDEZ Medication Reconciliation Report [facility] VisitID: [id number] [address] [place] [address] 76y, F Registration Date/Time: 11/23/2016 Weight: 61.2 kg Height/Length: 63 in. BMI: 23.9 ALLERGIES: NKDA The patient's Home Medications are listed below: CONTINUE TAKING THE FOLLOWING MEDICATIONS: Atorvastatin Calcium Oral 20 mg, daily Cyclobenzaprine HCl Oral 10 mg, daily Folic Acid Oral Fosamax Oral Furosemide Oral 20 mg, daily Hydrocodone-Acetaminophen Oral 5 mg, 2x a day Iron dialy Keflex 500mg every 8 hours, started on 11/03 Levothyroxine Sodium Oral 150 mcg, daily PriLOSEC Oral 20 mg, daily Promacta Oral (12.5 mg), 3x a week Spironolactone Oral 50 mg, daily The source(s) of the original Home Medication information: Not obtained. The following Medications were given to the patient in the Emergency Department: DOXYCYCLINE MONOHYDRATE [PO] PO 100 mg, administered: 11/23/2016 2:14:00 PM Hydrocodone-APAP [PO] PO 1 tab, administered: 11/23/2016 2:15:00 PM The following Medications were prescribed to the patient: Hydrocodone/APAP 5mg / 325mg: take 1 orally every 12 hours. Dispense ten (10). No refill. -- Marycarmen Perales, P.ALuis-Mohini Doxycycline 100 mg: Take 1 capsule orally every 12 hours for 10 days. No refill. -- Marycarmen Perales, P.A.-C
--- NOTE | 2016-11-25 15:03 | ED MED RECONCILIATION SUMMARY ---
Patient: ROXANA HERNANDEZ Medication Reconciliation Report [facility] VisitID: [id number] [address] [place] [address] 76y, F Registration Date/Time: 11/23/2016 Weight: 61.2 kg Height/Length: 63 in. BMI: 23.9 ALLERGIES: NKDA The patient's Home Medications are listed below: CONTINUE TAKING THE FOLLOWING MEDICATIONS: Atorvastatin Calcium Oral 20 mg, daily Cyclobenzaprine HCl Oral 10 mg, daily Folic Acid Oral Fosamax Oral Furosemide Oral 20 mg, daily Hydrocodone-Acetaminophen Oral 5 mg, 2x a day Iron dialy Keflex 500mg every 8 hours, started on 11/03 Levothyroxine Sodium Oral 150 mcg, daily PriLOSEC Oral 20 mg, daily Promacta Oral (12.5 mg), 3x a week Spironolactone Oral 50 mg, daily The source(s) of the original Home Medication information: Not obtained. The following Medications were given to the patient in the Emergency Department: DOXYCYCLINE MONOHYDRATE [PO] PO 100 mg, administered: 11/23/2016 2:14:00 PM Hydrocodone-APAP [PO] PO 1 tab, administered: 11/23/2016 2:15:00 PM The following Medications were prescribed to the patient: Hydrocodone/APAP 5mg / 325mg: take 1 orally every 12 hours. Dispense ten (10). No refill. -- Marycarmen Perales, P.ALuis-Mohini Doxycycline 100 mg: Take 1 capsule orally every 12 hours for 10 days. No refill. -- Marycarmen Perales, P.A.-C
--- NOTE | 2016-11-25 15:03 | ED DISCHARGE INSTRUCTIONS ---
Patient: ROXANA HERNANDEZ General Instructions [facility] VisitID: [id number] [place] [address] 76y, F Registration Date/Time: 11/23/2016 Cellulitis of the right wrist and right hand. Arthritis of the right ankle, right foot, left ankle and left foot. Chronic Renal Insufficiency DM Anemia. INSTRUCTIONS (FOLLOW UP WITH YOUR DR IN 2 days Take 1 tablet of hydrocodone every 6 hours, you have this prescribed as well, now will take every 6 hours instead of every 12 hours). Your Current Medications: CONTINUE TAKING THE FOLLOWING MEDICATIONS: Atorvastatin Calcium Oral : 20 mg daily. Cyclobenzaprine HCl Oral : 10 mg daily. Folic Acid Oral. Fosamax Oral. Furosemide Oral : 20 mg daily. Hydrocodone-Acetaminophen Oral : 5 mg 2x a day. Iron dialy*. Keflex 500mg every 8 hours, started on 11/03*. Levothyroxine Sodium Oral : 150 mcg daily. PriLOSEC Oral : 20 mg daily. Promacta Oral : Tablet 12.5 mg, 3x a week. Spironolactone Oral : 50 mg daily. Prescription Medications: Hydrocodone/APAP 5mg / 325mg: take 1 orally every 12 hours. Dispense ten (10). No refill. Doxycycline 100 mg: Take 1 capsule orally every 12 hours for 10 days. No refill. Follow-up: Follow up with your doctor DR. Grant in two days. ADDITIONAL INFORMATION Cellulitis You have an infection of the skin known as cellulitis. This usually starts with a scrape, cut, insect bite, blister or other opening in the skin which becomes infected. This is a serious condition. It must be watched closely to be sure the infection is not spreading. With antibiotic treatment, the size of the red area will gradually shrink in size until the skin returns to normal. This will take 7-10 days. The red area should never increase in size once the antibiotic medicine has been started. Occasionally, an infection will be resistant to one antibiotic and another one will have to be used. Home Care: 1) Limit the use of the affected part, since excess movement can cause the infection to spread. 2) If the infection is on your leg, walk as little as possible during the first few days of the treatment. Keep your leg elevated while sitting. This will reduce swelling. 3) Take all of the antibiotic medicine exactly as directed until it is gone. Be careful not to miss any doses, especially during the first seven days. Follow Up with your doctor or this facility as directed. Check the infected area daily for the warning signs listed below. Get Prompt Medical Attention if any of the following occur: -- Spreading area of redness -- Increasing swelling or pain -- Appearance of pus or drainage -- Fever over 100.4 F (38.0 C) oral, or over 101.4 F (38.6 C) rectal, after two days on antibiotics Arthralgia Arthralgia is the term for pain in or around the joint. It is not a disease but a symptom. This may involve one or more joints. Sometimes arthralgias move from joint to joint. There are many causes for joint pain. These include: Injury Osteoarthritis (from wearing out of the joint surface) Rheumatoid arthritis (an autoimmune disease) Gout (inflammation of the joint due to crystals in the joint fluid) Infection inside the joint Bursitis (inflammation of the fluid-filled sacs around the joint) Lupus and other collagen-vascular disease Home Care: Rest the involved joint(s) until your symptoms improve. You may use acetaminophen (Tylenol) or ibuprofen (Motrin, Advil) to control pain, unless another pain medicine was prescribed. [NOTE: If you have chronic liver or kidney disease or ever had a stomach ulcer or GI bleeding, talk with your doctor before using these medicines.] Follow Up with your doctor or as advised by our staff. [NOTE: If you had an X-ray it will be reviewed by a specialist. You will be notified of any new findings that may affect your care.] Return Promptly or contact your doctor if any of the following occurs: Pain increases Pain moves to other joints New rash appears Fever of 100.4F (38C) or higher, or as directed by your healthcare provider Hydrocodone Bitartrate, Acetaminophen Oral tablet What is this medicine? ACETAMINOPHEN; HYDROCODONE (a set a YUE angeles fen; alanna droe KOE done) is a pain reliever. It is used to treat mild to moderate pain. How should I use this medicine? Take this medicine by mouth. Swallow it with a full glass of water. Follow the directions on the prescription label. If the medicine upsets your stomach, take the medicine with food or milk. Do not take more than you are told to take. Talk to your clinical medical transcriptionist regarding the use of this medicine in children. This medicine is not approved for use in children. What side effects may I notice from receiving this medicine? Side effects that you should report to your doctor or health nurse behavioral health care as soon as possible: allergic reactions like skin rash, itching or hives, swelling of the face, lips, or tongue breathing problems confusion feeling faint or lightheaded, falls stomach pain yellowing of the eyes or skin Side effects that usually do not require medical attention (report to your doctor or health nurse behavioral health care if they continue or are bothersome): nausea, vomiting stomach upset What may interact with this medicine? alcohol antihistamines isoniazid medicines for depression, anxiety, or psychotic disturbances medicines for sleep muscle relaxants naltrexone narcotic medicines (opiates) for pain phenobarbital ritonavir tramadol What if I miss a dose? If you miss a dose, take it as soon as you can. If it is almost time for your next dose, take only that dose. Do not take double or extra doses. Where should I keep my medicine? Keep out of the reach of children. This medicine can be abused. Keep your medicine in a safe place to protect it from theft. Do not share this medicine with anyone. Selling or giving away this medicine is dangerous and against the law. Store at room temperature between 15 and 30 degrees C (59 and 86 degrees F). Protect from light. Keep container tightly closed. Throw away any unused medicine after the expiration date. Discard unused medicine and used packaging carefully. Pets and children can be harmed if they find used or lost packages. What should I tell my health care provider before I take this medicine? They need to know if you have any of these conditions: brain tumor Crohn's disease, inflammatory bowel disease, or ulcerative colitis drink more than 3 alcohol-containing drinks per day drug abuse or addiction head injury heart or circulation problems kidney disease or problems going to the bathroom liver disease lung disease, asthma, or breathing problems an unusual or allergic reaction to acetaminophen, hydrocodone, other opioid analgesics, other medicines, foods, dyes, or preservatives or trying to get breast-feeding What should I watch for while using this medicine? Tell your doctor or health nurse behavioral health care if your pain does not go away, if it gets worse, or if you have new or a different type of pain. You may develop tolerance to the medicine. Tolerance means that you will need a higher dose of the medicine for pain relief. Tolerance is normal and is expected if you take the medicine for a long time. Do not suddenly stop taking your medicine because you may develop a severe reaction. Your body becomes used to the medicine. This does NOT mean you are addicted. Addiction is a behavior related to getting and using a drug for a non-medical reason. If you have pain, you have a medical reason to take pain medicine. Your doctor will tell you how much medicine to take. If your doctor wants you to stop the medicine, the dose will be slowly lowered over time to avoid any side effects. You may get drowsy or dizzy when you first start taking the medicine or change doses. Do not drive, use machinery, or do anything that may be dangerous until you know how the medicine affects you. Stand or sit up slowly. There are different types of narcotic medicines (opiates) for pain. If you take more than one type at the same time, you may have more side effects. Give your health care provider a list of all medicines you use. Your doctor will tell you how much medicine to take. Do not take more medicine than directed. Call emergency for help if you have problems breathing. The medicine will cause constipation. Try to have a bowel movement at least every 2 to 3 days. If you do not have a bowel movement for 3 days, call your doctor or health nurse behavioral health care. Too much acetaminophen can be very dangerous. Do not take Tylenol (acetaminophen) or medicines that contain acetaminophen with this medicine. Many non-prescription medicines contain acetaminophen. Always read the labels carefully. You have been given the following additional information: Cellulitis Arthralgia Hydrocodone Bitartrate, Acetaminophen Oral tablet (Electronically signed by Marycarmen Perales P.A.-C 11/23/2016 14:41)
--- NOTE | 2016-11-25 15:03 | ED MAR SUMMARY ---
..... Medication Administration Record [facility] [address] [place] [address] Patient: ROXANA HERNANDEZ Visit ID: [id number] 76y, F Weight: 61.2 kg Height/Length: 63 in BMI: 23.9 ALLERGIES: NKDA Given 14:14 11/23/2016 Neha Beavers, R.N. Medication Administered: DOXYCYCLINE MONOHYDRATE [PO], Dose: 100 mg Tablets PO. Medication Ordered: Doxycycline Monohydrate PO 100 mg (NOW). Given 14:15 11/23/2016 Neha Beavers, R.N. Medication Administered: HYDROCODONE-APAP [PO] (HYDROCODONE-ACETAMINOPHEN), Dose: 1 tab 5/325 mg Tablets PO. Medication Ordered: Hydrocodone-APAP PO 5/325 mg (NOW, HIGH ALERT MEDICATION).
== END 2016-11-23 14:33 | disposition home or self-care (01) ==
LOC: ED SRH 12:34
DX: L03.113 Cellulitis of right upper limb (principal); N28.9 Disorder of kidney and ureter, unspecified; D64.9 Anemia, unspecified; E11.9 Type 2 diabetes mellitus without complications; M19.071 Primary osteoarthritis, right ankle and foot; M19.072 Primary osteoarthritis, left ankle and foot; I10 Essential (primary) hypertension; Z79.899 Other long term (current) drug therapy
CPT/HCPCS: 90047; 91585; 92031; 93004; 95059; 95150